=== PATIENT | female | born 1990 | race Caucasian/White ===

== ENCOUNTER 2020-09-24 15:30 | Emergency (ER) | payer MEDICAID, SELFPAY ==
[2020-09-24 15:31] VITALS: BP 136/90; PULSE 66; RESP 18; TEMP 36.9; O2SAT 97; BMI 33.6
--- NOTE | 2020-09-24 15:39 | HMH.EDGENADL ---
ED Disposition Clinical Impression: Concussion Qualifiers: Encounter type: initial encounter Loss of consciousness presence/duration: with LOC of 30 min or less Qualified Code(s): S06.0X1A - Concussion with loss of consciousness of 30 minutes or less, initial encounter Forehead contusion Qualifiers: Encounter type: initial encounter Qualified Code(s): S00.83XA - Contusion of other part of head, initial encounter Forehead abrasion Qualifiers: Encounter type: initial encounter Qualified Code(s): S00.81XA - Abrasion of other part of head, initial encounter Cervical strain, acute Qualifiers: Encounter type: initial encounter Qualified Code(s): S16.1XXA - Strain of muscle, fascia and tendon at neck level, initial encounter Disposition: Home, Self-Care Condition on Discharge: Good Instructions: DI for Concussion Additional Instructions: Tylenol or ibuprofen for headaches. Ice pack to forehead 20 minutes 4-5X a day. Follow-up with primary care provider if not improving in 4 to 5 days. Referrals: Provider,Referral, MD [Primary Care Provider] - Forms: Work/School Release - Critical Care Critical Care Time: No Attestation: On , the high probability of a clinically significant, sudden or life threatening deterioration of the following system(s) required my full and direct attention, intervention and personal management. The time I documented below is in addition to time spent performing reported procedures but includes the following listed in this critical care notation. Medical Decision Making - [place] Inquiry Pt receiving controlled substance: No Vital Signs: 09/24/20 15:31 Temperature 98.4 F Temperature Source Oral Pulse Rate [Right Radial] 66 Respiratory Rate 18 Blood Pressure [Right Arm] 136/90 Blood Pressure Mean [Right Arm] 105 02 Sat by Pulse Oximetry 97 Oxygen Delivery Method Room Air Orders (Tests/Meds): ED MEDICATIONS Discontinued Medications Generic Name Dose Route Start Last Admin Trade Name Freq PRN Reason Stop Dose Admin Acetaminophen 1,000 mg 09/24/20 16:12 09/24/20 16:14 Acetaminophen 500mg Tab PO 09/24/20 16:13 1,000 mg ONCE ONE Administration - CT Data CT Scan: Head, C-Spine Time Received: 16:[address] Reviewed: Yes: I have viewed the radiologist's interpretation Findings Narrative: PROCEDURE INFORMATION: Exam: CT Head Without Contrast Exam date and time: 09/24/2020 3:43 PM Age: 29 years old Clinical indication: Injury or trauma; Blunt trauma (contusions or hematomas); Patient HX: Injury to head from fall, abrasion on RT forehead, C/O dizziness and headaches; Additional info: Injury, fall TECHNIQUE: Imaging protocol: Computed tomography of the head without contrast. Radiation optimization: All CT scans at this facility use at least one of these dose optimization techniques: automated exposure control; mA and/or kV adjustment per patient size (includes targeted exams where dose is matched to clinical indication); or iterative reconstruction. COMPARISON: No relevant prior studies available. FINDINGS: Brain: Normal. No hemorrhage. Unremarkable white matter. No mass effect. Cerebral ventricles: No ventriculomegaly. Paranasal sinuses: Visualized sinuses are unremarkable. No fluid levels. Mastoid air cells: Visualized mastoid air cells are well aerated. Bones/joints: Unremarkable. No acute fracture. Soft tissues: Unremarkable. IMPRESSION: No acute intracranial abnormality. EDURE INFORMATION: Exam: CT Cervical Spine Without Contrast Exam date and time: 09/24/2020 3:43 PM Age: 29 years old Clinical indication: Injury or trauma; Blunt trauma; Patient HX: Injury to head from fall, abrasion on RT forehead, C/O dizziness and headaches; Additional info: Injury, fall TECHNIQUE: Imaging protocol: Computed tomography images of the cerv
--- NOTE | 2020-09-24 15:43 | CT_ITS ---
PROCEDURE INFORMATION: Exam: CT Cervical Spine Without Contrast Exam date and time: 09/24/2020 3:43 PM Age: 29 years old Clinical indication: Injury or trauma; Blunt trauma; Patient HX: Injury to head from fall, abrasion on RT forehead, C/O dizziness and headaches; Additional info: Injury, fall TECHNIQUE: Imaging protocol: Computed tomography images of the cervical spine without contrast. Radiation optimization: All CT scans at this facility use at least one of these dose optimization techniques: automated exposure control; mA and/or kV adjustment per patient size (includes targeted exams where dose is matched to clinical indication); or iterative reconstruction. COMPARISON: No relevant prior studies available. FINDINGS: Bones/joints: No acute fracture. Normal alignment. Discs/Spinal canal/Neural foramina: No significant disc protrusion. No severe spinal canal stenosis. No significant neural foraminal narrowing. Sinuses: Mild chronic left maxillary and sphenoid sinus disease. Lungs: Lung apices are normal. Soft tissues: Unremarkable. IMPRESSION: No acute findings.
--- NOTE | 2020-09-24 15:43 | CT_ITS ---
PROCEDURE INFORMATION: Exam: CT Head Without Contrast Exam date and time: 09/24/2020 3:43 PM Age: 29 years old Clinical indication: Injury or trauma; Blunt trauma (contusions or hematomas); Patient HX: Injury to head from fall, abrasion on RT forehead, C/O dizziness and headaches; Additional info: Injury, fall TECHNIQUE: Imaging protocol: Computed tomography of the head without contrast. Radiation optimization: All CT scans at this facility use at least one of these dose optimization techniques: automated exposure control; mA and/or kV adjustment per patient size (includes targeted exams where dose is matched to clinical indication); or iterative reconstruction. COMPARISON: No relevant prior studies available. FINDINGS: Brain: Normal. No hemorrhage. Unremarkable white matter. No mass effect. Cerebral ventricles: No ventriculomegaly. Paranasal sinuses: Visualized sinuses are unremarkable. No fluid levels. Mastoid air cells: Visualized mastoid air cells are well aerated. Bones/joints: Unremarkable. No acute fracture. Soft tissues: Unremarkable. IMPRESSION: No acute intracranial abnormality.
[2020-09-24 16:33] VITALS: BP 125/87; PULSE 66; RESP 18; TEMP 36.9; O2SAT 97
== END 2020-09-24 16:38 | disposition home or self-care (01) ==
PROVIDERS: Emergency Provider Emergency Medicine
DX: S06.0X1A Concussion with loss of consciousness of 30 minutes or less, initial encounter (principal); S16.1XXA Strain of muscle, fascia and tendon at neck level, initial encounter; W06.XXXA Fall from bed, initial encounter; Y92.032 Bedroom in apartment as the place of occurrence of the external cause
CPT/HCPCS: 70450; 72125; 99282

== ENCOUNTER 2021-05-13 20:10 | Emergency (ER) | payer MEDICAID, SELFPAY ==
[2021-05-13 20:12] VITALS: BP 138/98; PULSE 84; RESP 16; TEMP 36.8; O2SAT 96; BMI 34.7
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
[2021-05-13 22:01] VITALS: BP 138/98; PULSE 88; RESP 16; TEMP 36.6; O2SAT 98
== END 2021-05-13 22:06 | disposition home or self-care (01) ==
PROVIDERS: Emergency Provider Emergency Medicine
DX: S61.412A Laceration without foreign body of left hand, initial encounter (principal); W26.0XXA Contact with knife, initial encounter; Y92.010 Kitchen of single-family (private) house as the place of occurrence of the external cause; Z23 Encounter for immunization
CPT/HCPCS: 12001; 90715; 99282

== ENCOUNTER 2021-12-21 12:02 | Emergency (ER) | payer MEDICAID, SELFPAY ==
[2021-12-21 12:21] VITALS: BP 153/85; PULSE 82; RESP 17; TEMP 37; O2SAT 98; BMI 32.8
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
[2021-12-21 12:38] VITALS: PULSE 70; O2SAT 97
[2021-12-21 13:00] VITALS: PULSE 67; O2SAT 97
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
--- NOTE | 2021-12-21 13:31 | PC.NURSE ---
PT GIVEN 1 TYL HERE , CAUSE SHE TOOK 1 AT HOME
[2021-12-21 14:13] VITALS: BP 114/69; PULSE 63; O2SAT 97
--- NOTE | 2021-12-21 14:20 | PC.NURSE ---
rounded on pt, updated on results.
[2021-12-21 14:30] VITALS: BP 113/75; PULSE 61; O2SAT 96
[2021-12-21 14:47] VITALS: BP 139/85; PULSE 87; RESP 17; TEMP 36.8; O2SAT 97
== END 2021-12-21 14:50 | disposition home or self-care (01) ==
PROVIDERS: Emergency Provider Emergency Medicine; PCP Nurse Practitioner Family
DX: S39.012A Strain of muscle, fascia and tendon of lower back, initial encounter (principal)
CPT/HCPCS: 72131; 99283

== ENCOUNTER 2022-07-19 00:16 | Emergency (ER) | payer MEDICAID, SELFPAY ==
[2022-07-19 00:29] VITALS: BP 174/90; PULSE 80; O2SAT 99
[2022-07-19 00:31] VITALS: BP 174/90; PULSE 80; RESP 18; TEMP 36.8; O2SAT 98; BMI 45.4
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
[2022-07-19] MEDS: OXYCODONE 10MG W/APAP 325MG TABLET 1 EACH PO (00:49)
[2022-07-19] MEDS: KETOROLAC 60MG/2ML VIAL 60 MG IM (00:49)
[2022-07-19 01:46] VITALS: BP 156/90; PULSE 89; RESP 19; TEMP 36.7; O2SAT 98
== END 2022-07-19 01:52 | disposition home or self-care (01) ==
PROVIDERS: Emergency Provider Emergency Medicine; PCP Emergency Medicine
DX: S22.20XA Unspecified fracture of sternum, initial encounter for closed fracture (principal); S22.41XA Multiple fractures of ribs, right side, initial encounter for closed fracture; S22.32XA Fracture of one rib, left side, initial encounter for closed fracture; V86.59XA Driver of other special all-terrain or other off-road motor vehicle injured in nontraffic accident, initial encounter
CPT/HCPCS: 71250; 96372; 99284

== ENCOUNTER 2022-07-25 23:56 | Emergency (ER) | payer MEDICAID, SELFPAY ==
[2022-07-26 00:23] VITALS: BP 159/75; PULSE 110; RESP 26; TEMP 36.7; O2SAT 96; BMI 48.6
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
[2022-07-26 00:43] LABS: Basophils # 0.1 K/mm3 (0-0.2); Basophils % 1.3 % (0.1-2.0); Eosinophils # 0.1 K/mm3 (0.0-0.4); Eosinophils % 1.1 % (0.1-12.0); Hemoglobin 14.1 g/dL (12.2-16.2); Lymphocytes # 2.6 K/mm3 (0.7-4.5); Lymphocytes % 37.3 % (10-50); Mean Corpuscular HGB Conc 33.6 g/dL (31.8-35.4); Mean Corpuscular Hemoglobin 30.4 pg (27.0-31.2); Mean Corpuscular Volume 90.7 fl (81-99); Mean Platelet Volume 7.3 fl (7.4-10.4); Monocytes # 0.3 K/mm3 (0.1-1.0); Monocytes % 3.9 % (1.7-9.3); Neutrophils # 3.9 K/mm3 (1.8-7.8); Neutrophils % 56.4 % (37.0-80.0); Platelet Count 337 K/mm3 (142-424); Red Blood Count 4.63 M/mm3 (4.20-5.40); Red Cell Distribution Width 14.2 % (11.5-17.5); White Blood Count 6.9 K/mm3 (4.8-10.8)
[2022-07-26 00:46] LABS: Chloride 101 mmol/L (98-107); Sodium 137 mmol/L (136-145)
[2022-07-26 00:49] LABS: Alanine Aminotransferase 29 U/L (12-78); Albumin Level 4.5 g/dl (3.5-5.0); Albumin/Globulin Ratio 1.3 (1.1-1.8); Alkaline Phosphatase 99 U/L (38-126); Aspartate Amino Transferase 40 U/L (14-36); Bilirubin,Total 0.6 mg/dl (0.2-1.3); Blood Urea Nitrogen 15 mg/dl (7-17); Carbon Dioxide 28 mmol/L (22.0-30.0); Creatinine Clearance Estimated 74 mL/min (50-200); Estimated Glomerular Filt Rate 72 ml/min (>60); GFR (African American) 87 ML/MIN (>60); Globulin 3.4 g/dL (1.3-3.2); Total Protein,Serum 7.9 g/dl (6.3-8.2)
[2022-07-26 00:50] LABS: Calcium 8.5 mg/dl (8.4-10.2); Glucose 93 mg/dl (74-100)
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
[2022-07-26 00:51] LABS: HCG Qualitative, Serum Negative (Negative)
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
[2022-07-26 03:12] VITALS: BP 117/72; PULSE 71; RESP 22; TEMP 36.7; O2SAT 96
== END 2022-07-26 03:26 | disposition home or self-care (01) ==
PROVIDERS: Emergency Provider Emergency Medicine; PCP Emergency Medicine
DX: S22.20XA Unspecified fracture of sternum, initial encounter for closed fracture (principal); S22.41XA Multiple fractures of ribs, right side, initial encounter for closed fracture; S16.1XXA Strain of muscle, fascia and tendon at neck level, initial encounter; V49.50XA Passenger injured in collision with unspecified motor vehicles in traffic accident, initial encounter
CPT/HCPCS: 71045; 71275; 72125; 72170; 74177; 80053; 84703; 85025; 96360; 96361; 96374; 96375; 99285; J2405

== ENCOUNTER → 2022-10-17 13:46 | Outpatient (CLI) | payer MEDICAID, SELFPAY ==
--- NOTE | 2022-10-17 13:50 | MR_ITS ---
FINAL REPORT CLINICAL HISTORY: neck pain FINDINGS: Multi planar MR imaging was obtained of the cervical spine. There is abnormal decreased signal throughout the cervical discs. The vertebrae are of normal height. There is no malalignment. The cervical cord demonstrates normal signal and configuration. C2-C3: There is no evidence of significant disc bulge or protrusion. There is no significant facet hypertrophy. C3-C4: There is a mild midline disc protrusion with mild spinal canal compromise. C4-C5: There is no evidence of significant disc bulge or protrusion. There is no significant facet hypertrophy. C5-C6: There is no evidence of significant disc bulge or protrusion. There is no significant facet hypertrophy. C6-C7: There is no evidence of significant disc bulge or protrusion. There is no significant facet hypertrophy. C7-T1: There is no evidence of significant disc bulge or protrusion. There is no significant facet hypertrophy. IMPRESSION: Mild midline disc protrusion at C3-4 with mild spinal canal compromise. Reviewed, Interpreted and Dictated by Yonas Marquez MD Transcribed by Posrha Goode Authenticated and [facility]
--- NOTE | 2022-10-17 13:50 | MR_ITS ---
FINAL REPORT CLINICAL HISTORY: back pain FINDINGS: Multiplanar MR imaging of the thoracic spine was performed without contrast. On the sagittal T2-weighted images, mild disc degeneration is seen throughout. There is no evidence of fracture. The vertebral alignment is normal. No bony mass is identified. The thoracic spinal cord has an unremarkable appearance without evidence of mass, edema or syrinx. There is no evidence of canal stenosis or cord compression. On the axial images, there is a small midline T7-8 disc protrusion which mildly indents the thecal sac. Finding is best seen on image 10 of series 9. There is also a minimal right paracentral T9-10 disc protrusion. Finding is best seen on image 13 of series 8. There is no evidence of significant canal stenosis. No paraspinous soft tissue abnormality is seen. IMPRESSION: Small midline T7-8 disc protrusion mildly indents the thecal sac. Minimal right paracentral T9-10 disc protrusion. Reviewed, Interpreted and Dictated by Yonas Marquez MD Transcribed by Porsha Goode Authenticated and [facility]
== END ==
PROVIDERS: PCP Emergency Medicine; Visit Provider Emergency Medicine
DX: M54.2 Cervicalgia (principal); M54.9 Dorsalgia, unspecified; M54.6 Pain in thoracic spine; V49.50XA Passenger injured in collision with unspecified motor vehicles in traffic accident, initial encounter
CPT/HCPCS: 72141; 72146; 76376

== ENCOUNTER → 2022-11-20 12:53 | Outpatient (CLI) | payer MEDICAID, SELFPAY ==
[2022-11-20 13:36] LABS: Erythrocyte Sedimentation Rate 22 mm/hr (0-20)
[2022-11-20 13:52] LABS: Chol/HDL Ratio 4.8 (1-3.5); Cholesterol 167 mg/dl (140-200); HDL Cholesterol 35 mg/dl (40-60); Triglycerides 279 mg/dl (30-150); Uric Acid 6.3 mg/dl (2.5-6.2); VLDL Cholesterol 56 mg/dL (0-40)
[2022-11-20 14:04] LABS: Direct LDL Cholesterol 100.09 mg/dL (100-129)
[2022-11-20 14:10] LABS: T4 (Thyroxine) 5.1 ug/dl (5.53-11.0)
[2022-11-20 14:23] LABS: Thyroid Stimulating Hormone 4.33 uIU/mL (0.465-4.68)
[2022-11-20 14:40] LABS: 25-OH Vitamin D, Total 42.8 ng/mL (30-100)
[2022-11-22 08:02] LABS: RA Latex Turbid. <10.0 IU/mL (<14.0)
[2022-11-22 19:23] LABS: Antinuclear Antibodies, IFA Negative (.)
== END ==
PROVIDERS: PCP Emergency Medicine; Visit Provider Emergency Medicine
DX: E66.9 Obesity, unspecified (principal); M79.2 Neuralgia and neuritis, unspecified; Z68.42 Body mass index [BMI] 45.0-49.9, adult; Z79.899 Other long term (current) drug therapy
CPT/HCPCS: 36415; 80061; 82306; 84436; 84443; 84550; 85651; 86038; 86431

== ENCOUNTER 2022-12-27 15:30 | Outpatient (RCR) | payer MEDICAID, SELFPAY ==
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
--- NOTE | 2022-11-28 15:16 | HMH.RHREAS ---
Rehab Reassessment Rehab OP Re-assessment Start: 10/15/22 16:37 Freq: Status: Active Protocol: Document 11/28/22 14:00 DORETHA (Rec: 11/28/22 15:16 DORETHA [id number]) E-signed By Christianne Fung PT Rehab Re-assessment Subjective Subjective Pt reports she feels 25% improved since starting PT. Pt reports her neck feels a little better but the middle part of her back still bothers her a lot. Pt reports pain at worst as 8/10 within the last week. Pt reports her mid back continues to hurt with yard work and sometimes at night time to the point where she has to sleep in a chair. Pt reports she has been compliant with her HEP and the stretches are helping. Objective Objective Notes Cervical AROM: flex 35, ext 45 , RLF 45, LLF 50 Scapular strength: 4+/5 for upper and lower trapezius and rhomboids NDI: 20% Assessment Assessment Notes Pt has attended 6 PT session since her initial evaluation on 10/15/22. Treatment has consisted of aerobic exercise, postural reeducation, scapular strengthening, cervical stretching, manual therapy and modalities. Pt demonstrated improved cervical AROM, scapular strength and NDI score this date compared to the initial evaluation. Pt continues to report 8/10 subjective report of pain especially with occupational activities such as yard work. Pt would continue to benefit from skilled PT to futher improve subjective report of pain, soft tissue extensibility of the cervicothoracic region and scapular strength to improve overall QOL and tolerance to occupational duties. Patient goal
--- NOTE | 2022-12-27 18:08 | HMH.RHREAS ---
Rehab Reassessment Rehab OP Re-assessment Start: 10/15/22 16:37 Freq: Status: Active Protocol: Document 12/27/22 15:37 DORETHA (Rec: 12/27/22 18:07 DORETHA [id number]) E-signed By Christianne Fung PT Rehab Re-assessment Subjective Subjective Pt reports she feels that she was initially improving with PT but in the last 2 weeks cervicothoracic pain has worsened. Pt reports increased work load within the last couple weeks which may have increased pain. Pt reports pain at worst as 10/10 described as a constant dull ache with intermittent sharp pain. Pt reports she has been performing her HEP which helps some and PT does help but only provides short-term relief. Pt reports she had an appointment scheduled with pain management but had to cancel it and has not been able to reschedule yet. Objective Objective Notes Cervical AROM: flex 35, ext 30 , RLF 25, LLF 25, R rot 45, L rot 40 Assessment Progress Assessment Slower Than Expected Assessment Notes Pt has attended 11 PT visits consisting of aerobic exercise , cervicothoracic mobility, UE stretching, scapular strengthening, manaul therapy and modalities with fair-good tolerance. Pt demonstrated regression of cervical AROM and subjective report of pain and overall progress this date . Due to regression and continued severe subjective report of pain, pt referred back to MD for further treatment/pain managmement options. Patient goals met LT/6 Goals Not Met cervical AROM, pain severity at worst, functional/ occupational tolerance Revised Goals n/a Plan Plan Hold PT treatment and refer
== END 2022-12-27 15:35 | disposition home or self-care (01) ==
LOC: PT 15:30
PROVIDERS: PCP Emergency Medicine; Visit Provider Emergency Medicine
DX: M54.2 Cervicalgia (principal); M54.6 Pain in thoracic spine; V49.50XA Passenger injured in collision with unspecified motor vehicles in traffic accident, initial encounter
CPT/HCPCS: 97010; 97014; 97110; 97140; 97163; 97164; 97530; G0283

== ENCOUNTER → 2023-01-02 10:26 | Outpatient (CLI) | payer MEDICAID, SELFPAY ==
[2023-01-04 19:35] LABS: Calprotectin, Fecal 125 ug/g (0-120)
[2023-01-09 00:04] LABS: Pancreatic Elastase, Fecal <50 (>200)
== END ==
PROVIDERS: PCP Emergency Medicine; Visit Provider Nurse Practitioner
DX: R10.10 Upper abdominal pain, unspecified (principal); K58.9 Irritable bowel syndrome, unspecified; R19.7 Diarrhea, unspecified; R19.8 Other specified symptoms and signs involving the digestive system and abdomen
CPT/HCPCS: 82656; 83993

== ENCOUNTER 2023-02-20 10:28 | Day surgery (SDC) | payer MEDICAID, SELFPAY ==
[2023-02-07 13:56] VITALS: BMI 47.1
[2023-02-20 11:28] VITALS: BP 117/74; PULSE 68; RESP 18; TEMP 36.3; O2SAT 95
--- NOTE | 2023-02-20 11:58 | EXP.ANES.CKL ---
[facility] Disclaimer: The information contained in this section may have been updated after the patient was seen, as this information can be updated by other users. Medical History Abnormal electrocardiogram [ECG] [EKG] Heart murmur Tachycardia Surgical History History of section History of cholecystectomy History of hysterectomy Hx of exploratory laparotomy Family History Other Family history of diabetes mellitus type II Family history of pancreatitis Social History Smoking Status: Current every day smoker alcohol intake: never substance use type: denies use current occupational status: unemployed Travel in the last 8 weeks: None caffeine: Yes [facility] Anesthesia Checklist Patient Identification Patient Identification: Arm Band and Verbal (Name & ) Structural Data Admitted From: Home Planned Operative Procedure/s: EGD/Colonoscopy Consent for Planned Operative Procedure(s) Verified: Yes NPO Status Verified Time NPO: 00:00 Chart Verification Results Verified: HCG (Hysterectomy) Additional verifications Patient : No Anesthesia Reactions: No Airway Assessment Mallampati Score:: Class IV C-Spine Mobility Assessed: Yes TMJ Mobility Assessed: Yes Dentition: Good Dentition Neurological Assessment Level of Consciousness: Awake Hx Seizures: No Numbness or tingling in extremities: No Anesthesia Plan Anesthesia Risk discussed: Yes Anesthesia Plan: Verified ASA Class: III Anesthesia Type: MAC
--- NOTE | 2023-02-20 12:45 | HMH.SCOPE ---
Procedure: Date: 02/20/23 Patient Date of :: 1990 Procedure Performed:: EGD Indications:: The patient is a 32 year old with nausea, vomiting, abdominal pain, and chronic constipation Performing Provider:: Chris Cruz MD Referring Provider:: Shanae Chaudhary APRN Sedation:: See RN records Procedure:: The gastroscope was gently passed through the incisoral orifice into the oral cavity and under direct visualization the esophagus was intubated. The endoscope was passed down the esophagus, through the stomach, and into the duodenum. Color, texture, mucosa, and anatomy of the esophagus, stomach, and duodenum were carefully examined with the scope. Findings:: Oropharynx: normal Esophagus: normal EG Junction: intact at 38 cm Cardia: normal Fundus: normal Body: normal. Biopsy obtained Antrum: normal. Biopsy obtained Duodenal bulb: normal Duodenum (second and third portion): normal. Biopsies obtained Recommendations:: Await pathology results Follow up in GI office with referring provider Complications:: None Estimated blood obtained (mL): 0 Colonoscopy Component Colonoscopy Component Was a colonoscopy performed during today's procedure?: No
[2023-02-20 12:48] VITALS: BP 92/47; PULSE 75; RESP 17; TEMP 36.3; O2SAT 94
[2023-02-20 12:58] VITALS: BP 97/70; PULSE 68; RESP 16; O2SAT 97
[2023-02-20 13:08] VITALS: BP 111/68; PULSE 69; RESP 17; O2SAT 97
--- NOTE | 2023-02-20 14:09 | SUR.PHASEII ---
1320- pt dressed, waiting on dr. mcelroy. no needs expressed at this time
== END 2023-02-20 13:45 | disposition home or self-care (01) ==
PROVIDERS: PCP Emergency Medicine; Visit Provider Internal Medicine
PROC: 0DJ08ZZ Inspection of Upper Intestinal Tract, Via Natural or Artificial Opening Endoscopic (ICD-10-PCS; CPT 43235; principal; 2023-02-20 11:30)
DX: K31.9 Disease of stomach and duodenum, unspecified (principal); R11.2 Nausea with vomiting, unspecified; R10.9 Unspecified abdominal pain; K59.09 Other constipation
CPT/HCPCS: 43239

== ENCOUNTER → 2023-03-01 11:25 | Outpatient (CLI) | payer MEDICAID, SELFPAY ==
[2023-03-01 11:30] LABS: Microscopic, Urine URINE MICROSCOPIC (MICROSCOPIC)
[2023-03-01 12:22] LABS: Basophils % 0.6 % (0.1-2.0); Eosinophils # 0.1 K/mm3 (0.0-0.4); Eosinophils % 0.7 % (0.1-12.0); Hematocrit 37.5 % (37.0-47.0); Hemoglobin 12.9 g/dL (12.2-16.2); Lymphocytes # 2.5 K/mm3 (0.7-4.5); Lymphocytes % 36.2 % (10-50); Mean Corpuscular HGB Conc 34.5 g/dL (31.8-35.4); Mean Corpuscular Hemoglobin 32.7 pg (27.0-31.2); Mean Corpuscular Volume 94.8 fl (81-99); Monocytes # 0.3 K/mm3 (0.1-1.0); Monocytes % 4.3 % (1.7-9.3); Neutrophils # 3.9 K/mm3 (1.8-7.8); Neutrophils % 58.2 % (37.0-80.0); Platelet Count 254 K/mm3 (142-424); Red Blood Count 3.95 M/mm3 (4.20-5.40); Red Cell Distribution Width 14.2 % (11.5-17.5); White Blood Count 6.8 K/mm3 (4.8-10.8)
[2023-03-01 12:29] LABS: Appearance,Urine CLEAR (Clear); Bilirubin,Urine Negative (Negative); Blood, Urine 2+ (Negative); Color,Urine YELLOW (Yellow); Glucose,Urine (UA) Negative (Negative); Ketones,Urine Negative (Negative); Leukocyte Esterase,Urine 1+ (Negative); Nitrate,Urine Negative (Negative); PH,Urine 5.5 (5.0-8.5); Protein,Urine Negative (Negative); Specific Gravity, Urine >= 1.030 (1.005-1.030); Urobilinogen,Urine 0.2 EU/dl (0.2)
[2023-03-01 12:43] LABS: Bacteria,Urine 1+ /lpf
[2023-03-01 13:12] LABS: Anion Gap 13.5 mEq/L (5-15); Blood Urea Nitrogen 11 mg/dl (7-17); Carbon Dioxide 25 mmol/L (22.0-30.0); Chloride 104 mmol/L (98-107); Estimated Glomerular Filt Rate 72 ml/min (>60); GFR (African American) 87 ML/MIN (>60); Glucose 94 mg/dl (74-100); Potassium 4.5 mmoL/L (3.5-5.1); Sodium 138 mmol/L (136-145)
== END ==
PROVIDERS: PCP Emergency Medicine; Visit Provider Surgery
DX: K42.9 Umbilical hernia without obstruction or gangrene (principal); N39.0 Urinary tract infection, site not specified; B96.29 Other Escherichia coli [E. coli] as the cause of diseases classified elsewhere; B96.1 Klebsiella pneumoniae [K. pneumoniae] as the cause of diseases classified elsewhere; B96.4 Proteus (mirabilis) (morganii) as the cause of diseases classified elsewhere
CPT/HCPCS: 36415; 80048; 81001; 85025; 87086

== ENCOUNTER 2023-04-04 06:01 | Day surgery (SDC) | payer MEDICAID, SELFPAY ==
[2023-04-02 13:34] VITALS: BMI 42.0
[2023-04-04] VITALS (9 sets, daily range): BP systolic 122–152; BP diastolic 73–99; PULSE 70–87; RESP 14–18; TEMP 36.3–36.6; O2SAT 92–96
--- NOTE | 2023-04-04 07:05 | EXP.ANES.CKL ---
[facility] Disclaimer: The information contained in this section may have been updated after the patient was seen, as this information can be updated by other users. Medical History Abnormal electrocardiogram [ECG] [EKG] Heart murmur Tachycardia Surgical History History of section History of cholecystectomy History of hysterectomy Hx of exploratory laparotomy x4 Family History Other Family history of diabetes mellitus type II Family history of pancreatitis Social History Smoking Status: Current every day smoker alcohol intake: never substance use type: denies use current occupational status: unemployed Travel in the last 8 weeks: None caffeine: Yes [facility] Anesthesia Checklist Patient Identification Patient Identification: Verbal (Name & ) Structural Data Admitted From: Home Planned Operative Procedure/s: lap umbilical hernia repair Consent for Planned Operative Procedure(s) Verified: Yes NPO Status Verified Time NPO: 00:00 Additional verifications Anesthesia Reactions: No Hx Blood Transfusions: No Blood Transfusion Reaction: No Airway Assessment Mallampati Score:: Class III C-Spine Mobility Assessed: Yes TMJ Mobility Assessed: Yes Dentition: Good Dentition Neurological Assessment Level of Consciousness: Awake, Alert and Appropriate Anesthesia Plan Anesthesia Risk discussed: Yes Anesthesia Plan: Verified ASA Class: III Anesthesia Type: General
--- NOTE | 2023-04-04 09:08 | EXP.OP.NOTE ---
Date of procedure: 04/04/23 Pre-op Diagnosis:: Umbilical hernia with incarcerated omentum Periumbilical hernia with incarcerated omentum Post-op Diagnosis:: Same Procedure performed:: Open repair of complex umbilical/periumbilical hernias with 8 cm Ventralex mesh Surgeon:: Dominick Cochran MD Anesthesia: GETA Estimated blood loss (mL): 15 Operative findings:: Complex multifocal umbilical/periumbilical hernias with incarcerated omentum Operative note:: After informed consent was obtained the patient was taken to the operating room and placed in the supine position. General anesthesia was induced and her abdomen was prepped and draped in a sterile fashion. A longitudinal incision was made just above the umbilicus overlying the palpable defects. A combination of blunt dissection and electrocautery was utilized to transect through the deep subcutaneous tissue to the fascial margin. Complex multifocal hernia sacs were encountered. These were carefully transected and passed off for pathologic evaluation. Incarcerated omentum was returned to the abdominal cavity as a multifocal defect was opened with electrocautery in a manner to leave a single defect. Hernia sacs along each lateral margin were also excised with electrocautery. #2 Novafil was placed along the lateral fascial margins and left for final closure. An 8 cm Ventralex mesh was then placed in position and secured with 0 Ethibond. With the mesh in position and primary overlying closure completed with a 0 Ethibond, the #2 Novafil was then tied in order to complete the repair. The wound was thoroughly irrigated. Deep subcutaneous tissue was reapproximated with 2-0 Vicryl and skin was then closed with 4-0 Monocryl in an interrupted mattress fashion to facilitate hemostasis. Dressings were applied and the patient was transferred to recovery in stable condition after extubation. Condition: stable Disposition: PACU Specimens:: Hernia sac Complications:: No immediate
--- NOTE | 2023-04-04 09:18 | P.PNANES_ITS ---
[facility] Anesthesia Record Part I Anesthesia Record I Intake, IV Amount: 850 Hydration: Adequate Estimated blood loss (mL): 50 Urine output (mL): 0 Blood Products used (#): none Blood Pressure: 140/73 SaO2: 94 Pulse Rate: 83 Airway Patency: Patent Respiratory Rate: 14 Temperature: 97.3 F Patient is:: Awake (Talking) and Stable Stable to PACU at:: 09:17
--- NOTE | 2023-04-05 14:00 | P.PNANES_ITS ---
[facility] Anesthesia Record Part II Anesthesia Record Part II Discharge Time: 09:42 Destination: Surgical Day Care (OP Surgery) PACU nurse assessment reviewed?: Yes Patient Condition:: Good Anesthesia Complications:: None Swallowing reflex intact?: Yes Airway Patency: Patent Cyanosis?: No Blood Pressure: 127/91 SaO2: 94 Respiratory Rate: 14 Pulse Rate: 79 Temperature: 97.9 F Mental Status: Alert & Oriented Pain level:: 1 Nausea and/or vomitting:: None Intake, IV Amount: 0 Hydration: Adequate
[2023-04-05 14:01] VITALS: BP 127/91; PULSE 79; RESP 14; TEMP 36.6; O2SAT 94
== END 2023-04-04 10:13 | disposition home or self-care (01) ==
PROVIDERS: PCP Emergency Medicine; Visit Provider Surgery
PROC: (CPT 49594; principal; 2023-04-04 07:30)
DX: K42.0 Umbilical hernia with obstruction, without gangrene (principal)
CPT/HCPCS: 49594; 96374; C1781; J2405

== ENCOUNTER 2023-04-18 15:30 | Outpatient (RCR) | payer MEDICAID, SELFPAY ==
--- NOTE | 2023-02-14 13:33 | HMH.PTOPEV ---
PT Outpatient Evaluation Rehab PT Outpatient Evaluation Start: 02/14/23 13:11 Freq: Status: Active Protocol: Document 02/14/23 13:11 SUSHMA (Rec: 02/14/23 13:32 PHORADHA [id number]) E-signed By Rene John, PT Outpatient Therapy Subjective History Subjective History This is the initial PT eval for Dianna Padilla, 32 yowf who presents with c/o low back pain x ~ 2 yrs with insidious onset of symptoms. She reports intermittent B LE pains which began more recently, but no numbness or tingling. She also reports increased feelings of stiffness, especially after prolonged sitting. She reports no significant PMH. New diagnosis of cancer in past 12 No months? Chief Complaint Pain,Stiff Symptom Type Ache,Throb,Sharp,Stabbing Symptoms Relieved By Rest/Positioning Symptoms Aggravated By Physical Activity,Twisting Prior Functional Limitations None Current Functional Limitations Lifting,Driving,Standing, Sitting,Recreation Activity, Walking Symptom Description Constant but Variable Level of pain today (0-10) 6 Pain scale - at its best (0-10) 4 Pain scale - at its worst (0-10) 10 Lumbopelvic Eval Posture Thoracic Spine Posture Standing Position Neutral Lumbar Spine Posture Standing Position Neutral Palapation tenderness bilateral lumbar spinal tenderness Yes: 2/4 paraspinal tenderness Yes: 2/4 Accessory Movement L-spine Vertebrae Accessory Movements Central P/A [place] that [place]it Symptoms L3 bilateral L4 bilateral L5 bilateral Range of Motion Lumbar Spine Active Flexion Range of 0-65 Motion (degrees) Lumbar Spine Active Extension Range of 0-10 Motion (degrees) Left Lumbar Spine Lateral Flexion Active 0-10 Range of Motion (degrees) Right Lumbar Spine Lateral Flexion 0-10 Active Range of Motion (degrees) Manual Muscle Test Bilateral Knee Extension Strength Grade 5 Normal Knee Flexion Strength Grade 5 Normal Hip Flexion Strength Grade 5 Normal Hip Abduction Strength Grade 5 Normal Hip Adduction Strength Grade 5 Normal Extensor Hallucis Longus Strength Grade 5 Normal Ankle Dorsiflexion Strength Grade 5 Normal Gastronemius/Soleus Strength Grade 5 Normal Special Tests Hip Scouring (Quadrant) Test Negative Left,Negative Right Hip Eron (LARRY) Test Negative Left,Negative Right Hip Bowstring (Cram) Test Negative Left,Negative Right Sciatic Nerve Tension Test Negative Left,Negative Right Unilateral Straight Leg Raise (Lasegue) Negative Left,Negative Right Test Lumbar Long [place] Distraction Test/Manual Negative Traction Oswestry Index Section 1 Pain Intensity The pain is severe and does not vary much Section 2 Personal Care (Washing,Dresing) my way of washing or dressing even though it causes some pain Section 3 Lifting lifting heavy weights off the floor, but I can manage light to medium Section 4 Walking I cannot walk more than one mile wihtout increasing pain Section 5 Sitting I can sit in any chair for as long as I like Section 6 Standing I cannot stand more than 1 hour without increasing pain Section 7 Sleeping I get pain in bed, but it does not prevent me from sleeping well Section 8 Social Life My social life is normal but increases the degree of pain Section 9 Traveling I get extra pain while traveling, but it does not compel me to seek al Section 10 Changing Degreee of Pain My pain is gradually getting worse Score and Risk Level Oswestry Sc 22 Oswestry Risk Level Moderate Disability Outpatient Therapy Assessment Impairments Problems/Impairmments Palpation Tenderness,Impaired Range of Motion,Impaired Endurance,Impaired Walking, Impaired Standing,Impaired Driving,Impaired Lifting, Impaired Recreational Activities,Subjective C/O Pain ,Impaired Self Care/Self Management Prognosis Rehab Potential Good Clinical Impression Consistent with Diagnosis Yes Short Term Goals Number of Weeks 2 Decreased Palpation Tenderness Yes: 1/ lumbar parapinals Increase Range of Motion Yes: Lumbar AROM by 5 deg Increase Ability to Stand Yes: > 15 min without pain Decrease Subjective C/O Pain Yes: 08/06 Patient to be Ind w/ HEP Yes Correction Goals Number of Weeks 4 Decreased Palpation Tenderness Yes: 0/4 lumbar parapsinals Increase Range of Motion Yes: Lumbar AROM by 10 deg Increase Ability to Drive/Ride in Car Yes: > 30 min without pain Return to Recreational Activities Yes Decrease Subjective C/O Pain Yes: 06/08 Improve Self Care/Self Management Yes: Oswestry < 15 Patient to be Ind w/ Advanced HEP Yes Outpatient Therapy Plan of Care Treatment Plan May Include Therapeutic Exercise Including Home Yes Exercise Program Manual Therapy Techniques Yes Neuromuscular Re-education Yes Therapeutic Activities to Return to Yes Previous Functional/Work Level ADL/Self Care Education Yes Dry Needling Yes Thermal Modalities Yes Electrical Stimulation Yes Ultrasound/Phonophoresis Yes Iontophoresis Yes Orthotics/Bracing/Splinting Yes Massage Yes Eval/Re-Eval Yes Frequency Times per week 2 Duration Number of Weeks 4 Addendums This patient is a candidate for social No or vocational rehab? Patient/Guardian verbally acknowledges Yes understanding of treatment program and consents to further treatment? Patient/Guardian verbally acknowledges Yes understanding of diagnosis, prognosis and goals for treatment? Eval Complexity PT Charges 71931 - High Complexity Shoulder/Elbow Eval Shoulder Objective Measurements Elbow Objective Measurements PHYSICIAN CERTIFICATION: I certify the specified therapy services for Dianna Padilla are required, authorized, and reviewed every 30 days.
--- NOTE | 2023-03-19 17:14 | HMH.RHREAS ---
Rehab Reassessment Rehab OP Re-assessment Start: 02/14/23 13:11 Freq: Status: Active Protocol: Document 03/19/23 17:06 SUSHMA (Rec: 03/19/23 17:13 PHORNE [id number]) E-signed By Rene John, PT Oswestry Index Section 1 Pain Intensity The pain comes and goes and is severe Section 2 Personal Care (Washing,Dresing) increase the pain and I find it necessary to change my way of doing it Section 3 Lifting lifting heavy weights off the floor, but I can manage if they are Section 4 Walking I cannot walk more than 1/4 mile without increasing pain Section 5 Sitting Pain prevents me from sitting for more than one hour Section 6 Standing I cannot stand more than 10 minutes without increasing pain Section 7 Sleeping I get pain in bed, but it does not prevent me from sleeping well Section 8 Social Life Pain has no significant effect on my social life apart from limiting Section 9 Traveling I get extra pain while traveling, but it does not compel me to seek al Section 10 Changing Degreee of Pain My pain is gradually getting worse Score and Risk Level Oswestry Sc 29 Oswestry Risk Level Severe Disability Rehab Re-assessment Subjective Subjective Pt presents with c/o 6/10 LBP this date. It's just still getting worse and worse. Objective Objective Notes AROM Lumbar Spine (in deg): FLEX= 0-65, EXT= 0-10, R SB = 0-10, L SB= 0-10. MMT: B LE remains 5/5 throughout Assessment Progress Assessment Slower Than Expected Assessment Notes Pt has shown limited improvements with treatment at this time and significantly worse oswestry score noted. Pt counseled to increase consistency with appointments and following HEP. Skilled intervention needed to return to prior level of function. Patient goals met none Goals Not Met ST,2,3,4,5 LT,2,3,4, 5,6,7 Revised Goals none Plan Plan Continue per initial POC. Frequency of Therapy 2 x/wk Duration of therapy 4 wks Time and Billing Re-Eval Time 18 Re-Eval Billing Units 1 PHYSICIAN CERTIFICATION: I certify the specified therapy services for Dianna Padilla are required, authorized, and reviewed every 30 days.
== END 2023-04-18 16:30 | disposition home or self-care (01) ==
LOC: PT 15:30
PROVIDERS: PCP Emergency Medicine; Visit Provider Emergency Medicine
DX: M54.16 Radiculopathy, lumbar region (principal); M54.50 Low back pain, unspecified
CPT/HCPCS: 97010; 97014; 97110; 97163; 97164; G0283

== ENCOUNTER 2023-05-08 18:24 | Outpatient (CLI) | payer MEDICAID, SELFPAY ==
[2023-05-08 22:15] LABS: Amphetamine/Metha Screen,Urine Negative ng/ml (<1000); Barbiturates Screen,Urine Negative ng/ml (<200); Benzodiazepines Screen,Urine Negative ng/ml (<200); Cannabinoid Screen,Urine Negative ng/ml (<50); Cocaine Screen,Urine Negative ng/ml (<300); Methadone Screen,Urine Positive ng/ml (<300); Opiate Screen,Urine Negative ng/ml (<300); Phencyclidine Screen,Urine Negative ng/ml (<25)
[2023-05-14 12:34] LABS: Methadone Positive (.); Methadone (GC/MS) >5000 ng/mL (Cutoff=100); Opiates Negative ng/mL (Cutoff=100)
== END 2023-05-08 23:59 ==
LOC: LAB.DROPOF 18:25
PROVIDERS: PCP Nurse Practitioner Family; Visit Provider Nurse Practitioner Family
DX: Z79.899 Other long term (current) drug therapy (principal); F41.9 Anxiety disorder, unspecified
CPT/HCPCS: 80307; 80358; 80361; G0480

== ENCOUNTER 2023-05-27 15:44 | Emergency (ER) | payer MEDICAID, SELFPAY ==
[2023-05-27 15:55] VITALS: BP 129/80; PULSE 89; RESP 21; TEMP 36.9; O2SAT 98; BMI 39.1
[2023-05-27 16:07] LABS: Apearance,Urine Cloudy (Clear); Color,Urine Yellow (Yellow)
[2023-05-27 16:08] LABS: Bilirubin,Urine Negative (Negative); Blood, Urine 3+ (Negative); Glucose,Urine (UA) Negative (Negative); Ketones,Urine Negative (Negative); Protein,Urine 1+ (Negative); UTC Leukocyte Esterase,Urine 2+ (Negative); UTC Nitrate,Urine Positive (Negative); Urobilinogen,Urine 0.2 EU/dl (0.2)
--- NOTE | 2023-05-27 16:15 | ED_ITS ---
Discharge Plan Disposition Patient Disposition: Home, Self-Care Condition: Good Prescriptions Prescriptions: New cefdinir 300 mg capsule 300 mg PO BID Qty: 20 0RF phenazopyridine [Pyridium] 200 mg tablet 200 mg PO Q8H 2 Days Qty: 6 0RF No Action gabapentin 600 mg tablet 600 mg PO DAILY tizanidine 4 mg tablet 4 mg PO DAILY Referrals Follow up/Referrals: Tobi Casillas DO [Primary Care Provider] - See instructions Activity Restrictions/Add. Instructions Additional Instructions/Restrictions: *Increase fluids. Water not Soda or Tea *Start antibiotic immediately and be sure to take as ordered for the FULL length of time although you should start to see improvement over the next 48 hours *Pyridium as needed Remember this medication will turn your urine . This is normal but it will stain what ever it gets on *You should not use Pyridium for more than 48 hours. If so , follow up with your primary physician to review urine culture and ensure that antibiotic is adequate for infection *Be SURE to follow up anytime for new or worsening symptoms with your family doctor. AND in 48 hours for urine culture results with your family doctor, if you do not have a doctor then you may call back to the [facility] for urine culture results and further treatment. We do recommend that you choose and establish care with a Primary Care Physician. ?AND follow up with them ?in 10-14 days to repeat UA to ensure infection is resolved and blood no longer present *Be sure to let your PCP know that we sent urine cultures from the [facility] so they can follow up to ensure that you area the on the correct antibiotic Call your doctor office and make appointment for 48 hours (2 days from today) ?to follow up and get the results of your urine culture and further treatment Clinical Impressions Clinical Impression: UTI (urinary tract infection) Qualifiers: Urinary tract infection type: site unspecified Hematuria presence: with coreen turia Qualified Code(s): N39.0 - Urinary tract infection, site not specified; R31.9 - Hematuria, unspecified Instructions Patient Instructions: DI for Urinary Tract Infection (UTI), Cefdinir Discharge ED Provider: Freida Stoddard [facility] HPI General Stated complaint: burning urination back pain urination urgancy Mode of Arrival: Ambulatory Source of Information: Patient Limitations: No Limitations Time Seen by Provider: 05/27/23 16:15 Description of Symptoms (Recalled from Triage Doc. by RN): PATIENT C/O PAIN WITH URINATION AND LOWER BACK PAIN SINCE SATURDAY HEENT Symptoms (Recalled from RN notes): No Resp Symptoms (Recalled from RN notes): No Skin Symptoms (Recalled from RN notes): No MS Symptoms (Recalled from RN notes): No Functional Status (Recalled from RN notes): WNL History of Present Illness Provider Complaint: Patient states that she started on with achy like pain in her lower back and pressure in her pelvic area like she had to go States that when she would urinate she felt spasm like pain States felt like she had a UTI States that she took Azo and it has got a little better but still having achy like pain in back and pain with urination so today she came in to get it checked Related Data Home Medications Medication Instructions Recorded Confirmed gabapentin 600 mg tablet 600 mg PO DAILY 05/27/23 05/27/23 tizanidine 4 mg tablet 4 mg PO DAILY 05/27/23 05/27/23 Previous Rx's Medication Instructions Recorded cefdinir 300 mg capsule 300 mg PO BID #20 caps 05/27/23 phenazopyridine 200 mg tablet 200 mg PO Q8H pain 2 days #6 tabs 05/27/23 (Pyridium) Allergies Allergy/AdvReac Type Severity Reaction Status Date / Time Sulfa (Sulfonamide Allergy Verified 05/08/23 13:33 Antibiotics) Worker's Comp Is this a Worker's Comp case?: No [facility] Disclaimer: The information contained in this section may have been updated after the patient was seen, as this information can be updated by other users. Medical History (Updated 05/27/23 @ 16:25 by Freida Stoddard APRN) Abnormal electrocardiogram [ECG] [EKG] Heart murmur Tachycardia Surgical History (Updated 04/17/23 @ 11:12 by CHARLINE Bergeron) History of section History of cholecystectomy History of hysterectomy History of umbilical hernia repair Hx of exploratory laparotomy Family History Other Family history of diabetes mellitus type II Family history of pancreatitis Social History Smoking Status: Current every day smoker alcohol intake: never substance use type: denies use current occupational status: unemployed Travel in the last 8 weeks: None caffeine: Yes ROS Obtained: Yes All systems reviewed & no additional complaints except as documented and Yes Systems reviewed as appropriate & no additional complaints except as documented Constitutional Constitutional: Reports system reviewed and no additional complaints, except as documented, Reports as per HPI, Denies body ache, Denies chills and Denies fever(s) ENT Ears, Nose, Mouth, and Throat: Reports system reviewed and no additional complaints, except as documented and Reports as per HPI Cardiovascular Cardiovascular: Reports system reviewed and no additional complaints, except as documented and Reports as per HPI Respiratory Respiratory: Reports system reviewed and no additional complaints, except as documented and Reports as per HPI Gastrointestinal Gastrointestingal: Reports system reviewed and no additional complaints, except as documented and as per HPI Genitourinary Female Genitourinary: Reports system reviewed and no additional complaints, except as documented, Reports as per HPI, Reports dysuria, Reports flank pain, Reports urinary frequency and Reports urinary urgency Musculoskeletal Musculoskeletal: Reports system reviewed and no additional complaints, except as documented, Reports as per HPI and Reports back pain Physical Exam General General appearance: alert and in no apparent distress ENT ENT exam: Present mucous membranes moist Respiratory Respiratory exam: Present normal lung sounds bilaterally; Absent respiratory distress or wheezes Cardiovascular Cardiovascular exam: Present regular rate, normal rhythm and normal heart sounds Abdominal Exam Abdominal exam: Present soft and normal bowel sounds; Absent distention or tenderness Back Exam Back 1 view image: 1. reports achy like pain denies injury denies loss of control of bowel or bladder Neurological Exam Neurological exam: Present alert, oriented X3 and normal gait Medical Decision Making Maico Inquiry Pt receiving controlled substance: No Maico was queried for this patient: No Vital Signs: 05/27/23 15:55 Temperature 98.4 F Temperature Source Oral Pulse Rate [Left Brachial] 89 Respiratory Rate 21 Blood Pressure [Left Arm] 129/80 Blood Pressure Mean [Left Arm] 96 Blood Pressure Source [Left Arm] Automatic Cuff Blood Pressure Position [Left Arm] Sitting 02 Sat by Pulse Oximetry 98 Oxygen Delivery Method Room Air Lab Data Lab results reviewed: Yes I reviewed the patient's lab results. Lab Results 05/27/23 16:05: Urine Color Yellow, Urine Appearance Cloudy, Urine pH 5.0, Ur Sp ecific [place] 1.030, Urine Protein 1+, Urine Glucose (UA) Negative, Urine Ketones Negative, Urine Blood 3+, Urine Nitrate Positive A, Urine Bilirubin Negative, Urine Urobilinogen 0.2, Ur Leukocyte Esterase 2+ A Orders (Tests/Meds): ORDERS Category Date Time Status Urine Culture Stat Micro 05/27/23 15:52 Received Medical Decision Narrative: Denies hx of kidney stone well appearing female denies fever, chills or body aches and denies abdominal pain at this time
[2023-05-27 16:16] VITALS: BP 129/80; PULSE 89; RESP 21; TEMP 36.9; O2SAT 98
== END 2023-05-27 16:28 | disposition home or self-care (01) ==
PROVIDERS: Emergency Provider Nurse Practitioner; PCP Internal Medicine
DX: N39.0 Urinary tract infection, site not specified (principal); B96.89 Other specified bacterial agents as the cause of diseases classified elsewhere; R31.9 Hematuria, unspecified; M54.59 Other low back pain; N32.89 Other specified disorders of bladder; F17.210 Nicotine dependence, cigarettes, uncomplicated
CPT/HCPCS: 81003; 87086; 99204; 99212; G0463

== ENCOUNTER → 2023-05-30 14:48 | Outpatient (POV) | payer MEDICAID, SELFPAY ==
[2023-05-30 15:12] VITALS: BP 156/73; PULSE 53; RESP 18; O2SAT 97; BMI 39.1
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
== END | disposition home or self-care (01) ==
PROVIDERS: PCP Nurse Practitioner Family; Visit Provider Nurse Practitioner Family
DX: M50.11 Cervical disc disorder with radiculopathy, high cervical region (principal); M54.50 Low back pain, unspecified; G89.29 Other chronic pain; M54.16 Radiculopathy, lumbar region
CPT/HCPCS: 99202; G0463

== ENCOUNTER 2023-06-06 12:53 | Outpatient (CLI) | payer MEDICAID, SELFPAY ==
--- NOTE | 2023-06-06 13:01 | XR_ITS ---
FINAL REPORT CLINICAL HISTORY: LBP WITH BLE COMPARISON: None FINDINGS: 5 views of the lumbar spine were obtained. There is no evidence of fracture or dislocation. The vertebral alignment is normal. Disc spaces are preserved. No paraspinous soft tissue abnormalities identified. IMPRESSION: No acute bony abnormality. Reviewed, Interpreted and Dictated by Rick Rose III, MD Transcribed by Dennise Garcia Authenticated and [facility]
== END 2023-06-06 23:59 ==
LOC: RAD 12:54
PROVIDERS: PCP Nurse Practitioner Family; Visit Provider Nurse Practitioner Family
DX: M54.50 Low back pain, unspecified (principal); M79.604 Pain in right leg; M79.605 Pain in left leg
CPT/HCPCS: 72110

== ENCOUNTER 2023-07-25 14:10 | Outpatient (CLI) | payer MEDICAID, SELFPAY ==
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
== END 2023-07-25 23:59 ==
LOC: RAD 14:11
PROVIDERS: PCP Nurse Practitioner Family; Visit Provider Nurse Practitioner Family
DX: M54.50 Low back pain, unspecified (principal); M79.661 Pain in right lower leg; M79.662 Pain in left lower leg
CPT/HCPCS: 72148; 76376

== ENCOUNTER 2023-08-30 09:29 | Outpatient (POV) | payer MEDICAID, SELFPAY ==
[2023-08-30 09:43] VITALS: BP 148/88; PULSE 67; RESP 16; O2SAT 98; BMI 42.3
--- NOTE | 2023-08-30 10:25 | EXP.PAIN.SOA ---
[facility] Pain Management SOAP Note Subjective:: Patient is a pleasant 32-year-old female who presents today for follow-up. Today she rates her pain a 6 out of 10. Patient denies any new trauma or injury from our last visit. She does state that she continues to have low back and leg symptoms as well as neck pain and in between her shoulder pain. Patient does state however that the low back and leg symptoms do seem to be the worst and bother her the most. She does describe this as an aching, throbbing sensation with numbness and tingling into her lower extremities. Patient does state the pain interferes with her ability to perform activities of daily living such as cooking and cleaning. Patient has tried oral medications, topicals, muscle relaxers, heat and ice with minimal relief. Patient has been released from physical therapy within the last 6 months with minimal improvement. At her last visit we did prescribe her Celebrex and did not really seem to notice any difference. Her Maico has been reviewed and is appropriate. Review of Systems: General: No recent weight changes, no fever, no sleep disturbances Respiratory: No cough, no shortness of air, no recurring pulmonary infections Cardiovascular/peripheral vascular: No chest pain, no palpitations, no edema, no shortness of breath Gastrointestinal: No new onset incontinence, normal bowel movements reported Genitourinary: No new onset incontinence Musculoskeletal: Low back pain, bilateral leg pain Psychiatric: [Normal mood/affect] Neurological: [Denies weakness in extremities], [denies balance issues] Objective:: Physical Exam: General: Alert and oriented x3, no acute distress, pleasant and cooperative Lungs: Respirations even and unlabored, symmetrical chest expansion Eyes: PERRL Musculoskeletal: Flexion and extension of lumbar [spine] somewhat guarded secondary to pain, [antalgic gait noted] Neurological: Speech clear, no gross sensory deficit Assessment:: Degenerative disc disease of cervical and lumbar spine with cervical and lumbar radiculopathy symptoms Plan:: Patient is experiencing worsening pain in her low back and legs with limited range of motion. Patient did have a bulging disc with disc desiccation at the L5-S1 level. I have discussed with patient that she may benefit from a epidural at this location. Risk and benefits were discussed with patient and she would like to proceed forward with this plan of care. Patient has tried and failed conservative therapy. I will also send in a 14-day supply of Skelaxin 800 mg twice daily. Patient will be scheduled for an LESI L5-S1 under fluoroscopy. Patient has continued to do at home exercising and stretching from the time of her physical therapy ending to now. Patient has been instructed to contact the clinic with any concerns before the next appointment. Dr. Villanueva has reviewed this note and agrees with this plan of care. This note was dictated using voice recognition software and make contain errors or omissions. [facility] Disclaimer: The information contained in this section may have been updated after the patient was seen, as this information can be updated by other users. Medical History Abnormal electrocardiogram [ECG] [EKG] Tachycardia Heart murmur Surgical History History of umbilical hernia repair Hx of exploratory laparotomy x4 History of section History of cholecystectomy History of hysterectomy Family History Other Family history of diabetes mellitus type II Family history of pancreatitis Social History Smoking Status: Current every day smoker alcohol intake: never substance use type: denies use current occupational status: other Travel in the last 8 weeks: None caffeine: Yes
== END 2023-08-30 23:59 | disposition home or self-care (01) ==
PROVIDERS: PCP Internal Medicine; Visit Provider Nurse Practitioner Family
DX: M50.10 Cervical disc disorder with radiculopathy, unspecified cervical region (principal); M51.16 Intervertebral disc disorders with radiculopathy, lumbar region
CPT/HCPCS: 99212; G0463

== ENCOUNTER → 2023-09-17 12:47 | Day surgery (SDC) | payer MEDICAID, SELFPAY ==
[2023-09-17 12:53] VITALS: BP 143/96; PULSE 72; RESP 18; O2SAT 97
[2023-09-17] MEDS: methylPREDNISolone ACETATE 80MG/ML VIAL 80 MG (13:06)
[2023-09-17 13:10] VITALS: BP 144/79; PULSE 55; RESP 16; TEMP 36.7; O2SAT 96; BMI 40.7
--- NOTE | 2023-09-17 13:15 | EXP.PAIN.PRO ---
Procedure Date: 09/17/23 Time: 13:00 Anesthesiologist:: Eron Calderon CRNA Complications:: None Pre-procedure Diagnosis:: Degenerative disc lumbar spine multilevels. Lumbar radiculopathy. Post-procedure Diagnosis:: Same. Indications for Procedure:: Patient is a pleasant 32-year-old female comes our clinic today for lumbar epidural steroid injection at L5-S1. Patient describes low back pain as constant, dull, aching. Patient also reports bilateral hip and leg radicular symptoms. She rates her pain 7/10. Procedure Details:: Procedure: Lumbar epidural steroid injection under fluoroscopy Informed consent was obtained and the risks and benefits of the procedure were explained to the patient. The patient was taken to the procedure room and noninvasive monitors placed, including noninvasive blood pressure cuff and pulse oximeter. The back was viewed using C-arm Fluoroscopy and prepped using Chloraprep as a cleansing solution and the L5-S1 interspace was palpated. Skin and subcutaneous tissues were anesthetized using lidocaine 1.5% and a 25-gauge needle. After this, an 18-gauge Touhy epidural needle was placed into the L5-S1 interspace and advanced using fluoroscopic guidance and loss of resistance to air until the epidural space was encountered. After confirmation of needle placement in the epidural space, with dye, a solution containing normal saline, 3 mL and Depo-Medrol 80 mg were incrementally injected into the lumbar epidural space. The patient tolerated the procedure well with no complications. The patient was observed in the Pain Clinic and then discharged home neurologically intact. Plan and Disposition:: Patient was discharged without incident.
[2023-09-17 13:17] VITALS: BP 139/82; PULSE 67; RESP 18; O2SAT 96
== END | disposition home or self-care (01) ==
PROVIDERS: PCP Internal Medicine; Visit Provider Nurse Anesthetist, Certified Registered
DX: M51.16 Intervertebral disc disorders with radiculopathy, lumbar region (principal)
CPT/HCPCS: 62323; J1010

== ENCOUNTER 2023-12-19 18:15 | Emergency (ER) | payer MEDICAID, SELFPAY ==
[2023-12-19 18:25] VITALS: BP 132/86; PULSE 83; RESP 16; TEMP 37; O2SAT 100; BMI 40.7
--- NOTE | 2023-12-19 19:28 | HMH.EDGENADL ---
Discharge Plan Disposition Patient Disposition: Home, Self-Care Prescriptions Prescriptions: New amoxicillin-pot clavulanate 875-125 mg tablet 1 tab PO BID 10 Days Qty: 20 0RF wereblns-xyxegzmad-QU 3.5-10,000-1 mg/mL-unit/mL-% drops,suspension 4 drp otic (ear) TID 7 Days Qty: 10 0RF No Action ciprofloxacin HCl 250 mg tablet 250 mg PO BID 5 Days Qty: 10 0RF metformin 500 mg tablet 500 mg PO ONCE Qty: 30 3RF methadone 10 mg/mL concentrate 110 mg PO DAILY gabapentin 600 mg tablet 600 mg PO DAILY tizanidine 4 mg tablet 4 mg PO DAILY metaxalone 800 mg tablet 800 mg PO BID Qty: 28 0RF Referrals Follow up/Referrals: Anoop Weeks MD [Physician] - See instructions Tobi Casillas DO [Primary Care Provider] - See instructions Activity Restrictions/Add. Instructions Additional Instructions/Restrictions: Given the severity of your otitis externa I recommend that you closely follow-up with ENT to ensure resolution of your symptoms please return to the emergency room with high fevers changes in mental status significant worsening of her symptoms or other concerns. Clinical Impressions Clinical Impression: Otitis externa Print Language Print Language: Citizen Of [place] Discharge ED Provider: Marcos Barnes General Adult HPI General Chief complaint: Ear Stated complaint: ear swollen, painful, nausea Time Seen by Provider: 12/19/23 19:19 Mode of Arrival: Ambulatory Source of Information: Patient Limitations: No Limitations Description of Symptoms (Recalled from ER Triage Doc. by RN): pt c/o R ear drainage and itchiness x1mo. pt states she was cleaning the crustys yesterday with her finger nail and a qtip and she thinks she scratched her ear drum. pt states she is having 8/10 pressure/shooting pain at this time. pt states it feels like her ear was swollen closed this am when she woke up. 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 History of Present Illness HPI narrative: Patient is a 33-year-old female presented today with right ear pain over the last few days. Not sure what as to whether not she had any significant trauma to this. No fevers or chills this pain and swelling feeling as if it closed up. Related Data Home Medications ?Medication ?Instructions ?Recorded ?Confirmed gabapentin 600 mg tablet 600 mg PO DAILY 05/27/23 08/30/23 tizanidine 4 mg tablet 4 mg PO DAILY 05/27/23 08/30/23 methadone 10 mg/mL oral concentrate 110 mg PO DAILY 07/24/23 08/30/23 Previous Rx's ?Medication ?Instructions ?Recorded ciprofloxacin HCl 250 mg tablet 250 mg PO BID 5 days #10 tabs 07/24/23 metformin 500 mg tablet 500 mg PO ONCE #30 tabs 07/24/23 metaxalone 800 mg tablet 800 mg PO BID #28 tabs 08/30/23 amoxicillin 875 mg-potassium 1 tab PO BID 10 days #20 tabs 12/19/23 clavulanate 125 mg tablet sbexntej-grsxidfjo-uhycuiqxl 3.5 4 drp otic (ear) TID 7 days #10 mL 12/19/23 mg-10,000 unit/mL-1 % ear drops,susp Allergies Allergy/AdvReac Type Severity Reaction Status Date / Time Sulfa (Sulfonamide Allergy Hives Verified 12/19/23 18:29 Antibiotics) [facility] Disclaimer: The information contained in this section may have been updated after the patient was seen, as this information can be updated by other users. Medical History Abnormal electrocardiogram [ECG] [EKG] Tachycardia Heart murmur Surgical History History of umbilical hernia repair Hx of exploratory laparotomy x4 History of section History of cholecystectomy History of hysterectomy Family History Other Family history of diabetes mellitus type II Family history of pancreatitis Social History Smoking Status: Current every day smoker alcohol intake: never substance use type: denies use current occupational status: other Travel in the last 8 weeks: None caffeine: Yes ROS Obtained: Yes All systems reviewed & no additional complaints except as documented Physical Exam General General appearance: alert ENT ENT exam: Present other (Significant swelling and erythema in the external auditory canal with near obliteration of the canal itself positive tragus sign unable to see tympanic membrane no significant mastoid tenderness) Respiratory Respiratory exam: Present normal lung sounds bilaterally Cardiovascular Cardiovascular exam: Present regular rate Neurological Exam Neurological exam: Present alert and oriented X3 Medical Decision Making [place]ico Inquiry Pt receiving controlled substance: No Vital Signs: 12/19/23 18:25 Temperature 98.6 F Temperature Source Oral Pulse Rate [Left] 83 Respiratory Rate 16 Blood Pressure [Right Arm] 132/86 Blood Pressure Mean [Right Arm] 101 Blood Pressure Source [Right Arm] Automatic Cuff Blood Pressure Position [Right Arm] Sitting 02 Sat by Pulse Oximetry 100 Oxygen Delivery Method Room Air Orders (Tests/Meds): ED MEDICATIONS Discontinued Medications Generic Name Dose Route Start Last Admin Trade Name Freq PRN Reason Stop Dose Admin Amoxicillin/Clavulanate Potassium 1 each 12/19/23 19:25 Amoxicillin/Clavulanate Potassium 875/125mg Tablet PO 12/19/23 19:26 ONCE ONE Neomycin/Polymyxin/Hydrocortisone 10 ml 12/19/23 19:25 Kqosaijx-Jlaaaqxym-Xy Otic Susp 10ml OT 12/19/23 19:26 ONCE ONE Medical Decision Narrative: Nontoxic GCS 15 normal neurologic exam 33-year-old female presenting today with relatively severe otitis externa. I have given her her first dose of neomycin Polymycin hydrocortisone drops in the emergency department and a dropper go home given the timing of her ED visit as her pharmacy may not be open tonight. She is also been given a dose of Augmentin for possible media component. Scripts of medications have been sent ENT follow-up given severity has been given there as well and she was discharged in stable condition with return precautions emphasized Critical Care Critical Care Time Critical Care Time: No
[2023-12-19] MEDS: NEOMYCIN-POLYMYXIN-HC OTIC SUSP 10ML 10 ML OT (19:32)
[2023-12-19] MEDS: AMOXICILLIN/CLAVULANATE POTASSIUM 875/125MG TABLET 1 EACH PO (19:32)
[2023-12-19 19:40] VITALS: BP 138/80; PULSE 80; RESP 16; TEMP 36.7; O2SAT 100
== END 2023-12-19 19:41 | disposition home or self-care (01) ==
PROVIDERS: Emergency Provider Student in an Organized Health Care Education/Training Program; PCP Internal Medicine
DX: H60.91 Unspecified otitis externa, right ear (principal); H92.01 Otalgia, right ear
CPT/HCPCS: 99283

== ENCOUNTER 2023-12-21 21:31 | Emergency (ER) | payer MEDICAID, SELFPAY ==
[2023-12-21 21:32] VITALS: BP 126/72; PULSE 97; RESP 20; TEMP 37.2; O2SAT 97; BMI 40.7
--- NOTE | 2023-12-21 22:15 | HMH.EDGENADL ---
Discharge Plan Disposition Patient Disposition: Home, Self-Care Chief Complaint: Ear Prescriptions Prescriptions: No Action ciprofloxacin HCl 250 mg tablet 250 mg PO BID 5 Days Qty: 10 0RF metformin 500 mg tablet 500 mg PO ONCE Qty: 30 3RF methadone 10 mg/mL concentrate 110 mg PO DAILY amoxicillin-pot clavulanate 875-125 mg tablet 1 tab PO BID 10 Days Qty: 20 0RF vabbiyil-jvrarjinp-FW 3.5-10,000-1 mg/mL-unit/mL-% drops,suspension 4 drp otic (ear) TID 7 Days Qty: 10 0RF gabapentin 600 mg tablet 600 mg PO DAILY tizanidine 4 mg tablet 4 mg PO DAILY metaxalone 800 mg tablet 800 mg PO BID Qty: 28 0RF Referrals Follow up/Referrals: Tobi Casillas DO [Primary Care Provider] - See instructions Activity Restrictions/Add. Instructions Additional Instructions/Restrictions: Call your family doctor to establish care for this visit to the emergency department and schedule follow-up within 48 hours to ensure improvement. If you have any worsening of your condition or any other concerning signs or symptoms, return to the emergency department or your primary care doctor for further evaluation. Drops bilaterally 3 times daily as prescribed. Clinical Impressions Clinical Impression: Bilateral otitis externa Print Language Print Language: [place] Discharge ED Provider: Patrice Sheppard General Adult HPI General Chief complaint: Ear Stated complaint: LT ear pain, chills Time Seen by Provider: 12/21/23 21:45 Mode of Arrival: Ambulatory Source of Information: Patient Limitations: No Limitations Description of Symptoms (Recalled from ER Triage Doc. by RN): pt was seen here recently for right ear pain and given drops and oral antbx, pt is back today bc its moving to left ear, History of Present Illness HPI narrative: Please note that above description of symptoms, in this electronic medical record under categorization of recalled from ER triage doctor by RN are reflective of an initial nursing assessment, however, is not reflective of my full history and physical exam that was personally taken and clarified. Consequentially, this preceding description of symptoms, which may include the patient's categorized chief complaint in the EMR, do not reflect my personal clinical impression, and the ultimate description of history of present illness and patient stated complaints should be deferred to this section of the note. Unless stated otherwise or congruent with this section of the note, additional signs, symptoms, or incongruence should be interpreted as inaccurate with my clinical impression. Related Data Home Medications ?Medication ?Instructions ?Recorded ?Confirmed gabapentin 600 mg tablet 600 mg PO DAILY 05/27/23 08/30/23 tizanidine 4 mg tablet 4 mg PO DAILY 05/27/23 08/30/23 methadone 10 mg/mL oral concentrate 110 mg PO DAILY 07/24/23 08/30/23 Previous Rx's ?Medication ?Instructions ?Recorded ciprofloxacin HCl 250 mg tablet 250 mg PO BID 5 days #10 tabs 07/24/23 metformin 500 mg tablet 500 mg PO ONCE #30 tabs 07/24/23 metaxalone 800 mg tablet 800 mg PO BID #28 tabs 08/30/23 amoxicillin 875 mg-potassium 1 tab PO BID 10 days #20 tabs 12/19/23 clavulanate 125 mg tablet tzlefmhb-jocetpomz-dvtehxdgv 3.5 4 drp otic (ear) TID 7 days #10 mL 12/19/23 mg-10,000 unit/mL-1 % ear drops,susp Allergies Allergy/AdvReac Type Severity Reaction Status Date / Time Sulfa (Sulfonamide Allergy Hives Verified 12/19/23 18:29 Antibiotics) [facility] Disclaimer: The information contained in this section may have been updated after the patient was seen, as this information can be updated by other users. Medical History Abnormal electrocardiogram [ECG] [EKG] Tachycardia Heart murmur Surgical History History of umbilical hernia repair Hx of exploratory lap
[2023-12-21 22:23] VITALS: BP 126/72; PULSE 91; RESP 20; TEMP 36.7; O2SAT 98
== END 2023-12-21 22:27 | disposition home or self-care (01) ==
PROVIDERS: Emergency Provider Emergency Medicine; PCP Internal Medicine
DX: H60.93 Unspecified otitis externa, bilateral (principal); R68.83 Chills (without fever)
CPT/HCPCS: 99282

== ENCOUNTER 2024-07-16 16:16 | Outpatient (CLI) | payer MEDICAID, SELFPAY ==
[2024-07-16 20:28] LABS: Free T4 (Free Thyroxine) 0.61 ng/dl (0.78-2.19)
== END 2024-07-16 23:59 | disposition home or self-care (01) ==
LOC: LAB.DROPOF 07-17 13:01
PROVIDERS: PCP Family Medicine; Visit Provider Family Medicine
DX: E03.9 Hypothyroidism, unspecified (principal); R00.2 Palpitations
CPT/HCPCS: 84439; 84443

== ENCOUNTER 2024-07-23 20:23 | Emergency (ER) | payer MEDICAID, SELFPAY ==
[2024-07-23 20:26] VITALS: BMI 42.5
[2024-07-23 20:27] VITALS: BP 157/76; PULSE 84; RESP 18; TEMP 36.4; O2SAT 100; BMI 42.5
--- NOTE | 2024-07-23 20:27 | ECG_ITS ---
APPROVED REPORT Exam: Resting ECG HR:96 bpm ECG Measurements Heart Rate 96 AXES NJ 145 P 147 QRSd 92 QRS 160 QT 382 T 165 QTc 436 Conclusion Sinus rhythm Frequent PVCs Electronically signed by : PETER WRIGHT, 07/25/2024 12:23:35
--- NOTE | 2024-07-23 20:31 | XR_ITS ---
PROCEDURE INFORMATION: Exam: XR Chest Exam date and time: 07/23/2024 10:27 PM Age: 33 years old Clinical indication: Pain; Chest pressure; Additional info: Chest pain/palpitations TECHNIQUE: Imaging protocol: Radiologic exam of the chest. Views: 1 view. COMPARISON: CT ANGIO CHEST PE PROTOCOL 07/26/2022 1:34 AM FINDINGS: Lungs: Low lung volumes. No consolidation. Pleural spaces: No pleural effusion. No pneumothorax. Heart/Mediastinum: No cardiomegaly. Bones/joints: Unremarkable. IMPRESSION: No acute findings.
[2024-07-23 20:51] LABS: Basophils % 0.2 % (0.1-2.0); Eosinophils # 0.1 K/mm3 (0.0-0.4); Eosinophils % 0.9 % (0.1-12.0); Hemoglobin 12.7 g/dL (12.2-16.2); Lymphocytes # 2.7 K/mm3 (0.7-4.5); Lymphocytes % 32.3 % (10-50); Mean Corpuscular HGB Conc 34.3 g/dL (31.8-35.4); Mean Corpuscular Hemoglobin 32.1 pg (27.0-31.2); Mean Corpuscular Volume 93.4 fl (81-99); Mean Platelet Volume 9.4 fl (7.4-10.4); Monocytes # 0.4 K/mm3 (0.1-1.0); Monocytes % 4.5 % (1.7-9.3); Neutrophils # 5.2 K/mm3 (1.8-7.8); Neutrophils % 61.7 % (37.0-80.0); Platelet Count 233 K/mm3 (142-424); Red Blood Count 3.96 M/mm3 (4.20-5.40); White Blood Count 8.4 K/mm3 (4.8-10.8)
[2024-07-23 21:06] LABS: Albumin Level 4.2 g/dl (3.5-5.0); Chloride 104 mmol/L (98-107); Potassium 3.6 mmoL/L (3.5-5.1); Sodium 137 mmol/L (136-145)
[2024-07-23 21:09] LABS: Alanine Aminotransferase 38 U/L (12-78); Albumin/Globulin Ratio 1.4 (1.1-1.8); Alkaline Phosphatase 76 U/L (38-126); Anion Gap 14.6 mEq/L (5-15); Aspartate Amino Transferase 37 U/L (14-36); Bilirubin,Total 0.5 mg/dl (0.2-1.3); Blood Urea Nitrogen 14 mg/dl (7-17); Calcium 8.9 mg/dl (8.4-10.2); Carbon Dioxide 22 mmol/L (22.0-30.0); Creatinine Clearance Estimated 76 mL/min (50-200); Estimated Glomerular Filt Rate 63 ml/min (>60); GFR (African American) 76 ML/MIN (>60); Globulin 2.9 g/dL (1.3-3.2); Glucose 158 mg/dl (74-100); Total Protein,Serum 7.1 g/dl (6.3-8.2)
[2024-07-23 21:35] LABS: Troponin I < 0.01 ng/ml (0.00-0.034)
[2024-07-23 22:10] VITALS: BP 159/92; PULSE 75; O2SAT 95
[2024-07-23 22:30] VITALS: BP 147/88; PULSE 83; RESP 20; O2SAT 98
--- NOTE | 2024-07-23 23:05 | ED_ITS ---
Discharge Plan Disposition Patient Disposition: Home, Self-Care Condition: Good Prescriptions Prescriptions: No Action methadone 10 mg/mL concentrate 50 mg PO DAILY tetracycline 250 mg tablet 250 mg PO BID Qty: 60 2RF levothyroxine 50 mcg tablet 50 mcg PO DAILY Qty: 30 0RF Referrals Follow up/Referrals: Maximiliano Herrera MD [Primary Care Provider] - See instructions Activity Restrictions/Add. Instructions Additional Instructions/Restrictions: You were evaluated in the ER and are appropriate for discharge at this time. Go to the pharmacy and parts picker the levothyroxine that was prescribed by your primary care doctor. Start taking this as directed immediately. Continue all other home medications as previously prescribed. Drink plenty of fluids including water, Gatorade, Pedialyte to maintain good hydration. Call your primary care doctor for close reevaluation and follow-up. Go to your upcoming cardiology appointment as scheduled. Return to the ER with any new, worsening, or otherwise concerning symptoms. Clinical Impressions Clinical Impression: Hypothyroid, Palpitations, Headache Stand Alone Forms Stand Alone Forms: Work/School Release Print Language Print Language: [place] Discharge ED Provider: Chente Saunders General Adult HPI General Chief complaint: Chest Pain Stated complaint: chest pain Time Seen by Provider: 07/23/24 23:08 Mode of Arrival: Ambulatory Source of Information: Patient Description of Symptoms (Recalled from ER Triage Doc. by RN): Pt presents for evaluation of intermittent chest pain x couple weeks and having palpitations History of Present Illness HPI narrative: 33-year-old female presents to the ER for multiple weeks of intermittent chest pains, palpitations, headaches. She states all of her symptoms have been getting progressively worse. They have been specifically worse since early this morning so she came to the ER for further evaluation. She reports taking Advil or Aleve at an hour prior to arrival. She states she had some labs done at her PCP for her thyroid but has not yet heard the results. She also reports mild nausea but no vomiting or diarrhea, no other associated symptoms. No recent illness. Related Data Home Medications ?Medication ?Instructions ?Recorded ?Confirmed methadone 10 mg/mL oral concentrate 50 mg PO DAILY 07/16/24 07/16/24 Previous Rx's ?Medication ?Instructions ?Recorded tetracycline 250 mg tablet 250 mg PO BID #60 tabs 07/16/24 levothyroxine 50 mcg tablet 50 mcg PO DAILY #30 tabs 07/21/24 Allergies Allergy/AdvReac Type Severity Reaction Status Date / Time Sulfa (Sulfonamide Allergy Hives Verified 07/23/24 20:27 Antibiotics) [facility] Disclaimer: The information contained in this section may have been updated after the patient was seen, as this information can be updated by other users. Medical History Acne rosacea, erythematous telangiectatic type Onychomycosis Abnormal electrocardiogram [ECG] [EKG] Tachycardia Heart murmur Surgical History History of umbilical hernia repair Hx of exploratory laparotomy x4 History of section History of cholecystectomy History of hysterectomy Family History Other Family history of diabetes mellitus type II Family history of pancreatitis Social History Smoking Status: Current every day smoker alcohol intake: never substance use type: denies use current occupational status: other Travel in the last 8 weeks: None caffeine: Yes Have you lived/traveled outside [place] in past 30 days?: No Contact w/someone who lives/traveled outside US past 30 days?: No Exposure to someone with infectious disease in past 14 days?: No Do you have a fever (greater than 100.4 F or 38 C)?: No Have you tested positive for COVID-19: No Exposed to someone with COVID-19 in past 14 days?: No Do you have a sore throat?: No Do you have a cough?: No Do you have any weakness?: No Do you have any diarrhea?: No Are you experiencing any unusual bleeding?: No Do you have any muscle aches/pain?: No Do you have any abdominal pain?: No Are you experiencing loss of taste or smell?: No Other Medical History Have you received the Flu Vaccine for this season: No Have you received the Pneumonia Vaccine: No ROS Obtained: Yes Systems reviewed as appropriate & no additional complaints except as documented Per HPI Physical Exam General General appearance: alert, in no apparent distress and obese Head Head exam: atraumatic and normocephalic Eye Eye exam: Present PERRL and EOMI ENT ENT exam: Present mucous membranes moist Neck Neck exam: Present normal inspection and full ROM Chest Chest inspection: Present symmetric chest wall rise Respiratory Respiratory exam: Present normal lung sounds bilaterally; Absent respiratory distress, wheezes or stridor Cardiovascular Cardiovascular exam: Present regular rate and normal rhythm Abdominal Exam Abdominal exam: Present soft; Absent distention or tenderness Extremities Exam Extremities exam: Present full ROM; Absent edema Neurological Exam Neurological exam: Present alert and oriented X3; Absent motor sensory deficit Psychiatric Psychiatric exam: Present normal affect and normal mood Skin Skin exam: Present warm and dry Medical Decision Making Medical Records Medical records reviewed: Yes I reviewed the patient's medical records. Screening: Per USPSTF and CDC recommendations, given the prevalence of disease in our region, it is our hospital?s policy to screen for HIV and viral Hepatitis for all patients aged 18 and over and those with ongoing risk factors. MR Comment: Reviewed TSH and T4 ordered by PCP a few days ago. This demonstrates evidence of hypothyroidism. Records also demonstrate patient has been prescribed levothyroxine. She reports she has not yet picked this up. [place]ico Inquiry Pt receiving controlled substance: No Vital Signs: 07/23/24 20:27 07/23/24 22:10 07/23/24 22:30 Temperature 97.6 F Temperature Source Temporal Artery Scan Pulse Rate 75 83 Pulse Rate [Right] 84 Respiratory Rate 18 20 Blood Pressure 159/92 H 147/88 H Blood Pressure [Right Arm] 157/76 H Blood Pressure Mean [Right Arm] 103 Blood Pressure Source [Right Arm] Automatic Cuff Blood Pressure Position [Right Arm] Sitting 02 Sat by Pulse Oximetry 100 95 98 Oxygen Delivery Method Room Air Room Air 07/24/24 01:10 Temperature 98.4 F Temperature Source Pulse Rate 88 Pulse Rate [Right] Respiratory Rate 20 Blood Pressure 129/87 Blood Pressure [Right Arm] Blood Pressure Mean [Right Arm] Blood Pressure Source [Right Arm] Blood Pressure Position [Right Arm] 02 Sat by Pulse Oximetry Oxygen Delivery Method Room Air Lab Data Lab Results 07/23/24 20:44: WBC 8.4, RBC 3.96 L, Hgb 12.7, Hct 37.0, MCV 93.4, MCH 32.1 H, MCHC 34.3, RDW 13.0, Plt Count 233, MPV 9.4, Neut % (Auto) 61.7, Lymph % (Auto) 32.3, Pitt % (Auto) 4.5, Eos % (Auto) 0.9, Baso % (Auto) 0.2, Neut # (Auto) 5.2, Lymph # (Auto) 2.7, Pitt # (Auto) 0.4, Eos # (Auto) 0.1, Baso # (Auto) 0.0, Sodium 137, Potassium 3.6, Chloride 104, Carbon Dioxide 22, Anion Gap 14.6, BUN 14, Creatinine 1.00, Estimated Creat Clear 76, Estimated GFR 63, Est GFR ( Amer) 76, Glucose 158 H, Calcium 8.9, Total Bilirubin 0.5, AST 37 H, ALT 38, Alkaline Phosphatase 76, Troponin I < 0.01, Total Protein 7.1, Albumin 4.2, Globulin 2.9, Albumin/Globulin Ratio 1.4, Serum HCG, Qual Negative 07/23/24 23:53: Troponin I < 0.01 07/23/24 20:44 07/23/24 20:44 Orders (Tests/Meds): ED MEDICATIONS Discontinued Medications Generic Name Dose Route Start Last Admin Trade Name Kassidy PRN Reason Stop Dose Admin Acetaminophen 1,000 mg 07/23/24 23:17 07/23/24 23:34 Acetaminophen 500mg Tab PO 07/23/24 23:18 1,000 mg ONCE ONE Administration Diphenhydramine HCl 25 mg 07/23/24 23:17 07/23/24 23:33 Diphenhydramine 25mg Capsule PO 07/23/24 23:18 25 mg ONCE ONE Administration Metoclopramide HCl 10 mg 07/23/24 23:17 07/23/24 23:34 Metoclopramide 10mg Tablet PO 07/23/24 23:18 10 mg ONCE ONE Administration ORDERS Category Date Time Status XR chest portable Stat Exams 07/23/24 20:31 Completed Complete Blood Count Auto Diff Stat Lab 07/23/24 20:44 Completed Comprehensive Metabolic Panel Stat Lab 07/23/24 20:44 Completed HCG Qualitative, Serum Stat Lab 07/23/24 20:44 Completed Troponin I Q3H Lab 07/23/24 23:53 Completed Troponin I Q3H Lab 07/24/24 02:45 Ordered Troponin I Stat Lab 07/23/24 20:44 Completed Medical Decision Narrative: In summary, this 33-year-old female with history of tachycardic, heart murmur, obesity, anxiety, degenerative disc disease, cervical radiculopathy which may not be at goal therapy presents to the emergency department today with palpitations, headache, nausea. On initial evaluation patient is hemodynamically stable, afebrile, she is complaining of mild headache but has no neurologic symptoms, GCS 15 with no deficits, patient has no reproducible chest pain on exam and is resting comfortably at this time. She does have occasional PVCs on the monitor. No peripheral edema, exam otherwise reassuring. Differential diagnosis includes but is not limited to hypothyroid, ACS, I considered PE but patient is PERC negative so I do not believe further workup is indicated, also considered electrolyte abnormality, esophageal spasm, intrathoracic abnormality, musculoskeletal etiology, thyroid derangement. Patient had been seen in triage prior to me evaluating her so she had nursing driven protocols in place. Ruling out the most morbid conditions drove my assessment. ECG personally interpreted demonstrates sinus rhythm with PVCs, rate 96, normal axis, normal [place] and QTc, no STEMI. After I evaluated the patient she is receiving Benadryl, Tylenol, Reglan for treatment of headache. She is tolerating oral intake and drinking fluids at this time. I have reviewed labs which demonstrate patient is hypothyroid based on labs from her PCP and she reports she has not yet picked up prescription at the pharmacy for thyroid treatment though records do demonstrate there is 1 ready for her. Labs personally reviewed demonstrate no leukocytosis or anemia, normal platelets, CMP nonactionable, initial troponin undetectably low less than 0.01 which is significantly reassuring given patient's duration of symptoms. hCG negative. Chest x-ray personally interpreted does not demonstrate acute thoracic abnormality, see radiology read for final interpretation. On reassessment after receiving medications for headache, patient has had improvement of symptoms. She is resting comfortably. Repeat troponin is still pending. We called lab and reportedly the sample was placed in the fridge instead of being run. Still waiting for results at this time. Patient would like to be discharged which I believe is reasonable. I will call her if there are any concerning results of the troponin but I have extremely low suspicion for this. Her symptoms are well-controlled at this time she states she has cardiology follow-up scheduled in a few days and I instructed her to keep this appointment. I also instructed her to parts picker the thyroid medication at the pharmacy and take it as it was prescribed by her PCP. Additionally she was instructed to call her PCPs office for follow-up and further evaluation. Patient was given instructions on symptomatic management, follow up instructions, and return precautions for the emergency department. Patient indicated understanding and was discharged in stable condition. Troponin resulted after patient discharged and was negative, also undetectably low. Reassuring. No change in management. Critical Care Critical Care Time Critical Care Time: No
[2024-07-23 23:17] LABS: HCG Qualitative, Serum Negative (Negative)
[2024-07-23] MEDS: diphenhydrAMINE 25MG CAPSULE 25 MG PO (23:33)
[2024-07-23] MEDS: METOCLOPRAMIDE 10MG TABLET 10 MG PO (23:34)
[2024-07-23] MEDS: ACETAMINOPHEN 500MG TAB 1000 MG PO (23:34)
[2024-07-24 01:10] VITALS: BP 129/87; PULSE 88; RESP 20; TEMP 36.9; O2SAT 98
[2024-07-24 01:36] LABS: Troponin I < 0.01 ng/ml (0.00-0.034)
== END 2024-07-24 01:12 | disposition home or self-care (01) ==
PROVIDERS: Emergency Medicine; Emergency Provider Emergency Medicine; PCP Family Medicine
DX: E03.9 Hypothyroidism, unspecified (principal); R07.9 Chest pain, unspecified; R00.2 Palpitations; R51.9 Headache, unspecified; R11.0 Nausea; R01.1 Cardiac murmur, unspecified; R00.0 Tachycardia, unspecified; K58.9 Irritable bowel syndrome, unspecified; E66.9 Obesity, unspecified; F41.9 Anxiety disorder, unspecified; Z72.0 Tobacco use; Z90.710 Acquired absence of both cervix and uterus
CPT/HCPCS: 71045; 80053; 84484; 84703; 85025; 93005; 99284

== ENCOUNTER 2024-11-02 14:05 | Outpatient (CLI) | payer MEDICAID, SELFPAY ==
[2024-11-02 20:35] LABS: Thyroid Stimulating Hormone 8.46 uIU/mL (0.465-4.68)
[2024-11-02 20:51] LABS: Free T4 (Free Thyroxine) 0.69 ng/dl (0.78-2.19)
--- OUTSIDE RECORDS SUMMARY | 2024-11-03 07:59 | XMS_ITS | Clinical Summary ---
Author Organization Healthcare Address [address] [place] [address] Care Team Providers Care Quality Control Associate Name Role Phone Nakul Cabrera Primary Care Provider Unavailabl e Allergies Active Allergy Reactions Criticality Noted Date Comments Codeine Itching Medium 01/26/2022 Sulfa Drugs Hives Medium 09/01/2012 Family History Medical History Relation Name Comments Conversions - Other Father Hepatiti s c, chronic Conversions - Other Mother Hepatiti s c, chronic Diabetes Mother Relation Name Status Comments Father Mother Social History Tobacco Use Types Packs/Day Years Used Date Smoking Tobacco: Every Day Smokeless Tobacco: Never Tobacco Cessation:Ready to Q uit: Not Asked; Counseling Given: Not Answered Alcohol Use Standard Drinks/Week Comments Not Currently 0 (1 standard drink = 0.6 oz pure alcohol) Alcoholic Drinks/day: Former consumption of alcohol Comments Unknown Sex and Gender Information Value Date Recorded Sex Assigned at Not on file Legal Sex Female 7:44 PM EDT Gender Identity Not on file Sexual Orientation Not on file Last Filed Vital Signs Vital Sign Reading Time Taken Comments Blood Pressure 128/68 01/26/2022 5:56 PM EDT Pulse 62 01/26/2022 5:56 PM EDT Temperature 36.9 C (98.5 F) 01/26/2022 1:18 PM EDT Respiratory Rate 17 01/26/2022 5:56 PM EDT Oxygen Saturation 98% 01/26/2022 5:00 PM EDT Inhaled Oxygen Concentration - - Weight 101 kg (223 lb 12.3 oz) 01/26/2022 1:18 P M EDT Height 170.2 cm (5' 7 ) 01/11/2016 9:51 AM EDT Body Mass Index 35.05 01/11/2016 9:51 AM EDT Plan of Treatment Health Maintenance Due Date Last Done Comments [facility]-Depression Screening 1988 [facility]-Hepatitis C Screening 1988 [facility]-/Child/Adol SDOH Screenings 1988 [facility]-Obesity Intervention 1994 [facility]-Varicella Vaccines (1 of 2 - 13+ 2-dose series) 2001 [facility]- SDOH Screenings 2006 [facility]-Adult SDOH Screenings 2006 HPV Vaccines (3 - 3-dose series) 04/02/2007 12/23/2006, 10/01/2006 [facility]-Hepatitis B Vaccines (1 of 3 - 19+ 3-dose series) 11/27/2007 [facility]-Pap Smear 2009 [facility]-Cervical Cancer Screening 2018 [facility]-HPV/Cotest 2018 [id number] Vaccine (1 - 2023- season) 2023 [facility]-Influenza Vaccine (#1) 2024 [facility]-DTaP,Tdap,and Td Vaccine s (2 - Td or Tdap) 05/13/2031 05/13/2021 [facility]-Zoster Vaccines (1 of 2) 2038 [facility]-HIV Screening Completed 10/25/2015 [facility]-HIB Vaccines Aged Out No longer e ligible based on patient's age to complete this topic [facility]-Hepatitis A Vaccines Aged Out No longer eligible based on patient's age to complete this topic [facility]-IPV Vaccines Aged Out No longer e ligible based on patient's age to complete this topic [facility]-Pneumococcal Vaccine: Pediatrics (0 to 5 Years) and At-Risk Patients (6 to 49 Years) Aged Out No longer eligible b ased on patient's age to complete this topic [facility]-Rotavirus Vaccines Aged Out No lo nger eligible based on patient's age to complete this topic Procedures Procedure Name Priority Date/Time Associated Diagnosis Comments HIV 1/2 ANTIBODY/ANTIGEN SCREEN WITH REFLEX TO HIV I/II DIFFERENTIATION Routine 10/25/2015 9:57 AM EDT from Last 3 Months or Most Recently Relevant to Health Maintenance Results * HIV 1 & 2 Antibody/Antigen Screen (10/25/2015 9:57 AM EDT) HIV 1 Result NONREACTIVE Screening for HIV 1 and 2 antibodies is NONREACTIVE. No confirmatory testing is required. SUNQUEST 10/25/2015 9:57 AM EDT 10/25/2015 10:39 AM EDT us Historical Provider LAB BLOOD ORDERABLES Maritza ty Result SUNQUEST from Last 3 Months or Most Recently Relevant to Health Maintenance Insurance MEDICAID Care Teams Quality Control Associate Relationship Specialty Start Date End Date Nakul Cabrera PCP - General 01/26/22
== END 2024-11-02 23:59 | disposition home or self-care (01) ==
LOC: LAB.DROPOF 11-03 07:43
PROVIDERS: PCP Family Medicine; Visit Provider Family Medicine
DX: E03.9 Hypothyroidism, unspecified (principal)
CPT/HCPCS: 84439; 84443

== ENCOUNTER 2024-12-16 08:56 | Outpatient (POV) | payer MEDICAID, SELFPAY ==
--- OUTSIDE RECORDS SUMMARY | 2024-12-16 09:00 | XMS_ITS | Clinical Summary ---
Author Organization Healthcare Address [address] [place] [address] Care Team Providers Care Certified Surgical Technologist Name Role Phone Nakul Cabrera Primary Care [...] 2009 [facility]-Cervical Cancer Screening 2018 [facility]-HPV/Cotest 2018 [id number] Vaccine (1 - 2023- season) 2023 [facility]-Influenza [...] EDT us Historical Provider LAB BLOOD ORDERABLES Final R esult SUNQUEST from Last 3 Months or Most Recently Relevant to Health Maintenance Insurance [employer] Care Teams Certified Surgical Technologist Relationship Specialty Start Date End Date Nakul Cabrera PCP - General 01/26/22
[2024-12-16 09:32] VITALS: BP 140/90; PULSE 89; RESP 12; O2SAT 99; BMI 42.0
--- NOTE | 2024-12-16 09:36 | EXP.PAIN.SOA ---
[facility] Disclaimer: The information contained in this section may have been updated after the patient was seen, as this information can be updated by other users. Medical History (Updated 12/16/24 @ 09:38 by Christianne Gottlieb APRN) BMI greater than 40 Acne rosacea, erythematous telangiectatic type Onychomycosis Abnormal electrocardiogram [ECG] [EKG] Tachycardia Heart murmur Surgical History History of umbilical hernia repair Hx of exploratory laparotomy History of section History of cholecystectomy History of hysterectomy Family History Other Family history of diabetes mellitus type II Family history of pancreatitis Social History Smoking Status: Current every day smoker alcohol intake: never substance use type: denies use current occupational status: other Travel in the last 8 weeks?: None caffeine: Yes PM Subjective & Objective Subjective Subjective:: Patient is a pleasant 34-year-old female who presents today for worsening low back and left hip pain. She rates it a 9 out of 10. Patient states this pain has been going on for at least a year and has progressively worsened. Patient does describe it as an aching sensation with shooting pains into the hip and upper thigh. Patient states that is fairly constant and does interfere with her ability perform activities of daily living such as cooking and cleaning. Patient states that she is up every hour during the night because she is tossing and turning due to the worsening symptoms. Patient is interested in additional injection therapy. Patient has been continuing at home stretching and exercise for longer than 12 weeks with no additional improvement. Her Maico has been reviewed and is appropriate. Review of Systems: General: No recent weight changes, no fever, no sleep disturbances Respiratory: No cough, no shortness of air, no recurring pulmonary infections Cardiovascular/peripheral vascular: No chest pain, no palpitations, no edema, no shortness of breath Gastrointestinal: No new onset incontinence, normal bowel movements reported Genitourinary: No new onset incontinence Musculoskeletal: Low back pain, left hip pain Psychiatric: [Normal mood/affect] Neurological: [Denies weakness in extremities], [denies balance issues] Pain at rest (0-10 scale): 9 Objective Objective:: Physical Exam: General: Alert and oriented x3, no acute distress, pleasant and cooperative Lungs: Respirations even and unlabored, symmetrical chest expansion Eyes: PERRL Musculoskeletal: Flexion and extension of lumbar [spine] somewhat guarded secondary to pain, [antalgic gait noted] point tenderness along left SI and left greater trochanteric bursa with positive left Jessica's, Becca's, Gaenslen's, compression and distraction exam Neurological: Speech clear, no gross sensory deficit Has patient had previous pain injection?: No Conservative treatment options previously tried: NSAIDS Length of treatment: Longer than 12 weeks and Home exercise plan Length of treatment: Longer than 12 weeks Meds Home Medications and Allergies Home Medications ?Medication ?Instructions ?Recorded ?Confirmed ?Type methadone 10 mg/mL oral concentrate 50 mg PO DAILY 07/16/24 11/02/24 History tetracycline 250 mg tablet 250 mg PO BID #60 tabs 11/02/24 11/02/24 Rx levothyroxine 75 mcg capsule 75 mcg PO DAILY #30 caps 11/04/24 Rx New Prescriptions to Start Prescriptions: Allergies Allergy/AdvReac Type Severity Reaction Status Date / Time Sulfa (Sulfonamide Allergy Hives Verified 11/02/24 13:22 Antibiotics) Assessment and Plan *Assessment and plan (1) Sacroiliitis: Status: Acute Category: Medical Code(s): M46.1 - Sacroiliitis, not elsewhere classified (2) Trochanteric bursitis of left hip: Status: Acute Category: Medical Code(s): M70.62 - Trochanteric bursitis, left hip Plan Patient is experiencing worsening pain along her low back and left hip with limited range of motion. Patient did have point tenderness along her left SI and left greater trochanteric bursa during today's exam. I did discuss with patient that I do believe she would benefit from a left SI and left greater trochanteric bursa injection. Risk and benefits were discussed with the patient and she would like to proceed forward with this plan of care. Patient has had this pain for longer than 1 year unrelieved with conservative measures such as oral medication, heat and ice, topicals, at home stretching exercise for longer than 12 weeks. Patient was counseled that if she does end up getting significant relief with her initial SI injection that we will plan on additional in future with the possibility of her being a potential candidate of a SI fusion in future. This will be a diagnostic SI injection with less than 1 mL of solution to be injected. Patient will be scheduled for a left SI and left bursa injection under fluoroscopy. Patient was also given physician guided low back and hip exercises during today's visit. Patient has been instructed to contact the clinic with any concerns before the next appointment. Dr. Villanueva has reviewed this note and agrees with this plan of care. This note was dictated using voice recognition software and make contain errors or omissions. All injections are used with Lidocaine, Bupivacaine and dexamethasone unless diagnostic in which case there is no steroids injected. Occasionally urine drug screen is needed to verify patient's compliance with our office pain contract. This is ordered based off specific treatments related to chronic pain with the potential to abuse certain medications.
== END 2024-12-16 23:59 | disposition home or self-care (01) ==
PROVIDERS: PCP Family Medicine; Visit Provider Nurse Practitioner Family
DX: M46.1 Sacroiliitis, not elsewhere classified (principal); M70.62 Trochanteric bursitis, left hip
CPT/HCPCS: 99212; G0463

== ENCOUNTER 2024-12-21 12:46 | Outpatient (CLI) | payer MEDICAID, SELFPAY ==
[2024-12-21 18:21] LABS: Thyroid Stimulating Hormone 2.27 uIU/mL (0.465-4.68)
[2024-12-21 20:05] LABS: Free T4 (Free Thyroxine) 1.19 ng/dl (0.78-2.19)
--- OUTSIDE RECORDS SUMMARY | 2024-12-23 10:09 | XMS_ITS | Clinical Summary ---
Author Organization Healthcare Address [address] [place] [address] Care Team Providers Care Impact Hammer Operator Name Role Phone Nakul Cabrera Primary Care [...] 2009 [facility]-Cervical Cancer Screening 2018 [facility]-HPV/Cotest 2018 [id number] Vaccine (1 - 2023- season) 2023 [facility]-Influenza [...] Health Maintenance Insurance [employer] Care Teams Impact Hammer Operator Relationship Specialty Start Date End Date Nakul Cabrera PCP - General 01/26/22
== END 2024-12-21 23:59 | disposition home or self-care (01) ==
LOC: LAB.DROPOF 12-23 10:08
PROVIDERS: PCP Family Medicine; Visit Provider Family Medicine
DX: E03.9 Hypothyroidism, unspecified (principal)
CPT/HCPCS: 36415; 84439; 84443

== ENCOUNTER 2025-03-06 20:28 | Emergency (ER) | payer MEDICAID, SELFPAY ==
[2025-03-06 21:37] VITALS: BP 137/78; PULSE 77; RESP 18; TEMP 37.1; O2SAT 98; BMI 40.3
--- OUTSIDE RECORDS SUMMARY | 2025-03-06 21:42 | XMS_ITS | Clinical Summary ---
Author Organization Healthcare Address [address] [place] [address] Care Team Providers Care Recruiting Administrator Name Role Phone Nakul Cabrera Primary Care [...] Date Last Done Comments [facility]-Depression Screening 1988 [facility]-Infant/Child/Adol SDOH Screenings 1988 [facility]-Varicella Vaccines (1 of 2 - 13+ 2-dose series) 2001 [facility]- SDOH Screenings 2006 [facility]-Adult SDOH Screenings 2006 HPV Vaccines (3 - 3-dose series) 04/02/2007 12/23/2006, 10/01/2006 [facility]-Hepatitis B Vaccines (1 of 3 - 19+ 3-dose series) 11/27/2007 [facility]-Pap Smear 2009 [facility]-Cervical Cancer Screening 2018 [facility]-HPV/Cotest 2018 [id number] Vaccine (1 - season) 2024 [facility]-Influenza Vaccine (#1) 2024 [facility]-DTaP,Tdap,and Td Vaccines (2 - Td or Tdap) 05/13/2031 05/13/2021 [facility]-Zoster Vaccines (1 of 2) 2038 [facility]-HIB Vaccines Aged Out No longer e [...] on patient's age to complete this topic [place] [phone] Care Teams Recruiting Administrator Relationship Specialty Start Date End Date Nakul Cabrera [facility] PCP - General 01/26/22
[2025-03-06 21:44] VITALS: BP 128/78; PULSE 71; RESP 18; TEMP 37.1; O2SAT 98
[2025-03-06 21:45] VITALS: PULSE 84; O2SAT 96
--- NOTE | 2025-03-06 21:45 | ED_ITS ---
<Statement entered by Marcos Barnes MD - 03/06/25 22:57> I was consulted by the BEBE, and we discussed the complexity of the problems being addressed. I approved the treatment and management plan for this patient's care in the emergency department, thus performing a substantive portion of the medical decision making. Marcos Barnes MD, MARCELINA, FACEP Discharge Plan Disposition Patient Disposition: Home, Self-Care Prescriptions Prescriptions: New fluticasone propionate [Flonase Allergy Relief] 50 mcg/actuation spray,suspension 1 spray intranasal DAILY PRN (Reason: allergy symptoms) 7 Days Qty: 16 0RF Rx Instructions: administer into each nostril pseudoephedrine HCl [Sudafed] 30 mg tablet 30 mg PO BID 7 Days Qty: 14 0RF benzonatate 100 mg capsule 100 mg PO BID PRN (Reason: cough) Qty: 14 0RF No Action metronidazole [Metrogel] 1 % gel 1 applic topical HS Qty: 60 2RF levothyroxine 75 mcg capsule 75 mcg PO DAILY Qty: 30 2RF tetracycline 250 mg tablet 250 mg PO TID Qty: 90 5RF gabapentin 300 mg capsule 300 mg PO TID Qty: 90 1RF Referrals Follow up/Referrals: Maximiliano Herrera MD [Primary Care Provider, Family Practice] - See instructions Activity Restrictions/Add. Instructions Additional Instructions/Restrictions: Today you were evaluated in the emergency department and diagnosed with a URI. Please use your medication as directed. You may also use Tylenol for any pain that you may have. Please follow-up with your PCP within 7 days. Return to the ED for any worsening of your condition. Clinical Impressions Clinical Impression: Viral URI, Acute nonsuppurative otitis media, Cough Stand Alone Forms Stand Alone Forms: Work/School Release Instructions Patient Instructions: Cough Print Language Print Language: Armenian Discharge ED Provider: Marcos Barnes General Adult HPI General Chief complaint: Ear Stated complaint: cough,headache,ears are hurting Time Seen by Provider: 03/06/25 21:35 Mode of Arrival: Ambulatory Source of Information: Patient Description of Symptoms (Recalled from ER Triage Doc. by RN): Patient states she has had a cough for the past 3 weeeks. States the past few days she has had bilateral internal ear pain 7/10. States that this symptoms is encompassing a headache which is also a 7/10. Denies N&V, vertigo, or syncope. Denies any drainage or hearing loss. History of Present Illness HPI narrative: patient is a 34-year-old female PMH tobacco use who presents to the ED for complaints of bilateral ear pain and a cough x 3 weeks. Describes her cough as dry, mostly occurring during the day. She does not have any chest pain or shortness of breath. States that over the past few days her ears have been hurting and feel pressure in them. Related Data Previous Rx's ?Medication ?Instructions ?Recorded gabapentin 300 mg capsule 300 mg PO TID #90 caps 01/21 levothyroxine 75 mcg capsule 75 mcg PO DAILY #30 caps 01/21/25 metronidazole 1 % topical gel 1 applic topical HS evan cea #60 01/21/25 (Metrogel) grams tetracycline 250 mg tablet 250 mg PO TID #90 tabs 12/29 09/20 benzonatate 100 mg capsule 100 mg PO BID PRN cough #14 caps 03/06/25 fluticasone propionate 50 1 spray intranasal DAILY PRN 03/06/25 mcg/actuation nasal allergy symptoms 7 days #16 grams spray,suspension (Flonase Allergy Relief) pseudoephedrine HCl 30 mg tablet 30 mg PO BID 7 days # 14 tabs 03/06/25 (Sudafed) Allergies Allergy/AdvReac Type Severity Reaction Status Date / Time Sulfa (Sulfonamide Allergy Hives Verified 01/21/25 10:51 Antibiotics) [facility] Disclaimer: The information contained in this section may have been updated after the patient was seen, as this information can be updated by other users. Medical History Restless legs BMI greater than 40 Acne rosacea, erythematous telangiectatic type Onychomycosis Abnormal electrocardiogram [ECG] [EKG] Tachycardia Heart murmur Surgical History History of umbilical hernia repair Hx of exploratory laparotomy x4 History of section History of cholecystectomy History of hysterectomy Family History Other Family history of diabetes mellitus type II Family history of pancreatitis Social History Smoking Status: Never smoker alcohol intake: never substance use type: denies use current occupational status: other Travel in the last 8 weeks?: None caffeine: Yes Have you lived/traveled outside [place] in past 30 days?: No Contact w/someone who lives/traveled outside US past 30 days?: No Exposure to someone with infectious disease in past 14 days?: No Do you have a fever (greater than 100.4 F or 38 C)?: No Have you tested positive for COVID-19?: No Exposed to someone with COVID-19 in past 14 days?: No Do you have a sore throat?: Yes Do you have a cough?: No Do you have any weakness?: No Do you have any diarrhea?: No Are you experiencing any unusual bleeding?: No Do you have any muscle aches/pain?: No Do you have any abdominal pain?: No Are you experiencing loss of taste or smell?: No Other Medical History Have you received the Flu Vaccine for this season: No Have you received the Pneumonia Vaccine: No ROS Obtained: Yes Systems reviewed as appropriate & no additional complaints except as documented Physical Exam General General appearance: alert Head Head exam: atraumatic Eye Eye exam: Present PERRL ENT ENT exam: Present other (Bilateral TMs clear, dull, full) Neck Neck exam: Present full ROM Respiratory Respiratory exam: Present normal lung sounds bilaterally Cardiovascular Cardiovascular exam: Present regular rate Neurological Exam Neurological exam: Present alert and oriented X3 Skin Skin exam: Present warm and dry Medical Decision Making Medical Records Screening: Per USPSTF and CDC recommendations, given the prevalence of disease in our region, it is our hospital?s policy to screen for HIV and viral Hepatitis for all patients aged 18 and over and those with ongoing risk factors. Maico Inquiry Pt receiving controlled substance: No Vital Signs: 03/06/25 21:37 Temperature 98.8 F Temperature Source Oral Pulse Rate [Left] 77 Respiratory Rate 18 Blood Pressure [Right Arm] 137/78 Blood Pressure Mean [Right Arm] 97 02 Sat by Pulse Oximetry 98 Orders (Tests/Meds): ORDERS Category Date Time Status Rapid PCR Covid and Flu A/B Stat Lab 03/06/25 21:43 Ordered Medical Decision Narrative: In summary, patient is a 34-year-old female PMH tobacco use who presents to the ED for complaints of bilateral ear pain and a cough x 3 weeks. Describes her cough as dry, mostly occurring during the day. She does not have any chest pain or shortness of breath. States that over the past few days her ears have been hurting and feel pressure in them. She denies taking any [id number] medications for her symptoms. Upon initial evaluation, patient is alert, oriented and cooperative. She is stable. Bilateral tympanic membrane dull, clear fluid noted, no erythema. Lung sounds are clear bilaterally. Differential diagnosis include URI, otitis media, nonsuppurative otitis media, among others. I discussed with patient that this is most likely viral nature, we can prescribe Flonase, Sudafed and Tessalon Perles for cough. Discussed that she can have a work note for over the weekend, increase fluid intake, rest. Discussed following up with PCP next week. We discussed return precautions to the ED and patient verbalized understanding. Critical Care Critical Care Time Critical Care Time: No
[2025-03-06 21:46] LABS: Coronavirus 19, PCR Not Detected (NotDetected); Influenza A, PCR Not Detected (NotDetected); Influenza B, PCR Not Detected (NotDetected)
== END 2025-03-06 21:49 | disposition home or self-care (01) ==
PROVIDERS: Nurse Practitioner; Emergency Provider Student in an Organized Health Care Education/Training Program; PCP Family Medicine
DX: H65.193 Other acute nonsuppurative otitis media, bilateral (principal); J06.9 Acute upper respiratory infection, unspecified; B34.9 Viral infection, unspecified; R05.9 Cough, unspecified; Z87.891 Personal history of nicotine dependence
CPT/HCPCS: 87636; 99283

== ENCOUNTER 2025-03-22 11:36 | Outpatient (CLI) | payer MEDICAID, SELFPAY ==
--- OUTSIDE RECORDS SUMMARY | 2025-03-22 11:56 | XMS_ITS | Clinical Summary ---
Author Organization Healthcare Address [address] [place] [address] Care Team Providers Care Contribution Solicitor Name Role Phone Nakul Cabrera Primary Care [...] 2009 [facility]-Cervical Cancer Screening 2018 [facility]-HPV/Cotest 2018 [id number] Vaccine (1 - 2024- season) 2024 [facility]-Influenza Vaccine (#1) 2024 [facility]-DTaP,Tdap,and [...] age to complete this topic Insurance MEDICAID Care Teams Contribution Solicitor Relationship Specialty Start Date End Date Nakul Cabrera [facility] PCP - General 01/26/22
[2025-03-22 12:06] LABS: Hematocrit 38.4 % (37.0-47.0); Hemoglobin 13.0 g/dL (12.2-16.2); Immature Granulocytes % 0.3 %; Mean Corpuscular HGB Conc 33.9 g/dL (31.8-35.4); Mean Corpuscular Hemoglobin 31.7 pg (27.0-31.2); Mean Corpuscular Volume 93.7 fl (81-99); Nucleated Red Blood Cells % 0 %; Platelet Count 240 K/mm3 (142-424); Red Blood Count 4.10 M/mm3 (4.20-5.40); Red Cell Distribution Width-SD 45.6 fL; White Blood Count 7.2 K/mm3 (4.8-10.8)
[2025-03-22 13:04] LABS: C-Reactive Protein 3.6 mg/L (0-4)
[2025-03-22 13:15] LABS: Free T4 (Free Thyroxine) 0.90 ng/dl (0.78-2.19)
[2025-03-22 13:29] LABS: Thyroid Stimulating Hormone 1.68 uIU/mL (0.465-4.68)
[2025-03-22 15:00] LABS: Hemoglobin A1C 4.8 % (4.0-6.0)
[2025-03-23 08:13] LABS: FSH 5.8 mIU/mL (.); LH 14.0 mIU/mL (.)
[2025-03-23 16:13] LABS: Antinuclear Antibodies, IFA Negative (.)
== END 2025-03-22 23:59 | disposition home or self-care (01) ==
LOC: LAB 11:37
PROVIDERS: PCP Family Medicine; Visit Provider Family Medicine
DX: M12.9 Arthropathy, unspecified (principal); R21 Rash and other nonspecific skin eruption; N95.1 Menopausal and female climacteric states; R73.09 Other abnormal glucose; E03.9 Hypothyroidism, unspecified
CPT/HCPCS: 36415; 83001; 83002; 83036; 84439; 84443; 85025; 86038; 86140